=== PATIENT | female | born 1985 | race Caucasian/White ===

== ENCOUNTER 2017-06-06 10:56 | Emergency (ER) | payer MEDICAID ==
[~2017-06-06] VITALS: Ht 157.5 cm; Wt 90.9 kg
[~2017-06-06 10:56] MED LIST: CLIN-79 PO; HYDR-569 PO; IBUP-1986 PO; ROPI0.5T PO
[2017-06-06] MEDS ORDERED: CLIN150C2 PO (12:18)
[2017-06-06] MEDS ORDERED: HYDR-3965 PO (12:18)
[2017-06-06] MEDS ORDERED: clindamycin 150mg capsule PO ONE (12:20)
[2017-06-06] MEDS ORDERED: ondansetron 4mg rapidly disintigrating tab PO ONE (12:20)
[2017-06-06] MEDS ORDERED: HYDROcodone/acetaminophen 5mg/325mg tablet PO ONE (12:20)
[2017-06-06 13:07] VITALS: BP 137/96
[2017-06-06] MEDS ORDERED: AMOX-580 PO (22:51)
== END 2017-06-06 13:08 | disposition home or self-care (01) ==
LOC: ER 10:58
DX: K08.89 Other specified disorders of teeth and supporting structures (principal); G89.29 Other chronic pain; J45.909 Unspecified asthma, uncomplicated; Z90.49 Acquired absence of other specified parts of digestive tract; Z88.5 Allergy status to narcotic agent; Z59.0 Homelessness; Z56.0 Unemployment, unspecified; Z88.1 Allergy status to other antibiotic agents
CPT/HCPCS: 99284

== ENCOUNTER 2017-06-06 21:13 | Emergency (ER) | payer MEDICAID ==
[~2017-06-06] VITALS: Ht 157.5 cm; Wt 97.0 kg
[~2017-06-06 21:13] MED LIST changes: +CLIN150C2 PO; +HYDR-3965 PO
[2017-06-06] MEDS ORDERED: TETanus/Pertussis (Acell)/Diphther VAC/PF (Tdap-Adult) 0.5ml syringe IM ONE (22:00)
[2017-06-06] MEDS ORDERED: BUPIVAcaine 0.5% inj/PF 30 ml vial IJ ONE ×2 (22:00→22:25)
[2017-06-06] MEDS ORDERED: BUPIVAcaine/PF 2.5 mg/ml (0.25%) 30ml vial IJ ONE ×2 (22:10→22:25)
[2017-06-06] MEDS ORDERED: amox tr/potassium clavulanate 875/125mg TAB PO ONE (22:35)
[2017-06-06 22:49] VITALS: BP 132/77
[2017-06-06] MEDS ORDERED: AMOX-580 PO (22:51)
== END 2017-06-06 22:57 | disposition home or self-care (01) ==
LOC: ER 21:14
DX: K08.89 Other specified disorders of teeth and supporting structures (principal); J45.909 Unspecified asthma, uncomplicated; G89.29 Other chronic pain; Z98.890 Other specified postprocedural states; Z88.5 Allergy status to narcotic agent; Z88.1 Allergy status to other antibiotic agents; Z59.0 Homelessness; Z56.0 Unemployment, unspecified; Z90.49 Acquired absence of other specified parts of digestive tract; Z86.14 Personal history of Methicillin resistant Staphylococcus aureus infection
CPT/HCPCS: 41800; 90715; 99283; A6449; J3490

== ENCOUNTER 2017-11-11 01:03 | Emergency (ER) | payer MEDICAID ==
[~2017-11-11] VITALS: Ht 157.5 cm; Wt 7.0 kg
[2017-11-11 01:03] VITALS: BP 124/60
[~2017-11-11 01:03] MED LIST changes: -CLIN-79 PO; -CLIN150C2 PO; +CLIN150C8 PO; -HYDR-3965 PO
[2017-11-11] MEDS ORDERED: PROPARACAINE/FLUORESCEIN ophthalmic drops 5ml bottle RIGHTEYE ONE (01:25)
[2017-11-11] MEDS ORDERED: dexamethasone 4mg/ml inj IM ONE (01:25)
[2017-11-11] MEDS ORDERED: diphenhydrAMINE 25mg capsule PO ONE (01:25)
[2017-11-11] MEDS ORDERED: ERYT1OIN6 RIGHTEYE (02:19)
[2017-11-11] MEDS ORDERED: ibuprofen tablet 400 MG TABLET PO ONE (02:20)
[2017-11-11] MEDS ORDERED: erythromycin ophthalmic ointment 1gm tube RIGHTEYE ONE (02:20)
[2017-11-11] MEDS ORDERED: acetaminophen 325mg tablet PO ONE (02:20)
== END 2017-11-11 02:35 | disposition home or self-care (01) ==
LOC: ER 01:03
DX: T15.91XA Foreign body on external eye, part unspecified, right eye, initial encounter (principal); J45.909 Unspecified asthma, uncomplicated; G89.29 Other chronic pain; Z90.49 Acquired absence of other specified parts of digestive tract; Z98.890 Other specified postprocedural states; Z56.0 Unemployment, unspecified; Z88.5 Allergy status to narcotic agent; Z88.1 Allergy status to other antibiotic agents; Z79.899 Other long term (current) drug therapy; W45.8XXA Other foreign body or object entering through skin, initial encounter; Y93.89 Activity, other specified; Y92.89 Other specified places as the place of occurrence of the external cause; Y99.8 Other external cause status
CPT/HCPCS: 65222; 96372; 99284; J1100; Q0163; 65205

== ENCOUNTER 2017-11-28 12:51 | Emergency (ER) | payer MEDICAID ==
[~2017-11-28] VITALS: Ht 160 cm; Wt 95.5 kg
[~2017-11-28 12:51] MED LIST changes: +ERYT1OIN6 RIGHTEYE
[2017-11-28 13:01] VITALS: BP 120/89
[2017-11-28] MEDS ORDERED: HYDR28CR14 TOP (13:14)
[2017-11-28] MEDS ORDERED: SULF1TAB49 PO (13:14)
== END 2017-11-28 13:52 | disposition home or self-care (01) ==
LOC: ER 12:52
DX: L73.9 Follicular disorder, unspecified (principal); L23.7 Allergic contact dermatitis due to plants, except food; J45.909 Unspecified asthma, uncomplicated; G89.29 Other chronic pain; Z90.49 Acquired absence of other specified parts of digestive tract; Z98.890 Other specified postprocedural states; Z56.0 Unemployment, unspecified; Z90.721 Acquired absence of ovaries, unilateral; Z88.5 Allergy status to narcotic agent; Z88.1 Allergy status to other antibiotic agents; Z79.01 Long term (current) use of anticoagulants; Z79.899 Other long term (current) drug therapy
CPT/HCPCS: 99283

== ENCOUNTER 2018-04-04 15:13 | Emergency (ER) | payer MEDICAID ==
[~2018-04-04] VITALS: Ht 157.5 cm; Wt 205.0 kg
[~2018-04-04 15:13] MED LIST changes: -ERYT1OIN6 RIGHTEYE; +HYDR-4383 PO; -HYDR-569 PO; +HYDR28CR14 TOP; +NAPR-56 PO
[2018-04-04 15:15] VITALS: BP 129/75
[2018-04-04] MEDS ORDERED: ketorolac trometh inj. 60 MG/2 ML VIAL IM STA (16:03)
== END 2018-04-04 16:25 | disposition home or self-care (01) ==
LOC: ER 15:13
DX: M25.511 Pain in right shoulder (principal); J45.909 Unspecified asthma, uncomplicated; G89.29 Other chronic pain; Z86.14 Personal history of Methicillin resistant Staphylococcus aureus infection; Z90.49 Acquired absence of other specified parts of digestive tract; Z98.890 Other specified postprocedural states; Z56.0 Unemployment, unspecified; Z88.5 Allergy status to narcotic agent; Z88.1 Allergy status to other antibiotic agents; Z79.2 Long term (current) use of antibiotics; Z79.899 Other long term (current) drug therapy
CPT/HCPCS: 96372; 99284; J1885

== ENCOUNTER 2018-04-25 12:57 | Emergency (ER) | payer MEDICAID ==
[~2018-04-25] VITALS: Ht 157.5 cm; Wt 101.0 kg
[~2018-04-25 12:57] MED LIST changes: -NAPR-56 PO
[2018-04-25 13:15] VITALS: BP 121/74
[2018-04-25] MEDS ORDERED: TRAM50TA2 PO (13:48)
[2018-04-25] MEDS ORDERED: PENI500T2 PO (13:48)
[2018-04-25] MEDS ORDERED: ketorolac trometh inj. 60 MG/2 ML VIAL IM ONE (13:50)
[2018-04-25] MEDS ORDERED: traMADol 50MG tablet PO ONE (13:50)
== END 2018-04-25 14:29 | disposition home or self-care (01) ==
LOC: ER 12:57
DX: K02.9 Dental caries, unspecified (principal); K08.89 Other specified disorders of teeth and supporting structures; F32.9 Major depressive disorder, single episode, unspecified; G89.29 Other chronic pain; J45.909 Unspecified asthma, uncomplicated; Z90.49 Acquired absence of other specified parts of digestive tract; Z90.721 Acquired absence of ovaries, unilateral; Z56.0 Unemployment, unspecified; Z86.14 Personal history of Methicillin resistant Staphylococcus aureus infection; Z88.5 Allergy status to narcotic agent; Z88.1 Allergy status to other antibiotic agents
CPT/HCPCS: 96372; 99283; J1885

== ENCOUNTER 2018-05-26 11:39 | Emergency (ER) | payer MEDICAID ==
[~2018-05-26] VITALS: Ht 154.9 cm; Wt 99.0 kg
[2018-05-26 12:15] VITALS: BP 110/74
[2018-05-26] MEDS ORDERED: NAPR-56 PO (13:49)
[2018-05-26] MEDS ORDERED: PENI250T2 PO (13:49)
== END 2018-05-26 13:58 | disposition home or self-care (01) ==
LOC: ER 11:40
DX: K08.89 Other specified disorders of teeth and supporting structures (principal); G89.29 Other chronic pain; F32.9 Major depressive disorder, single episode, unspecified; J45.909 Unspecified asthma, uncomplicated; Z86.14 Personal history of Methicillin resistant Staphylococcus aureus infection; Z90.49 Acquired absence of other specified parts of digestive tract; Z56.0 Unemployment, unspecified; Z90.721 Acquired absence of ovaries, unilateral; Z88.1 Allergy status to other antibiotic agents; Z88.5 Allergy status to narcotic agent
CPT/HCPCS: 99283

== ENCOUNTER 2018-07-07 16:27 | Emergency (ER) | payer MEDICAID ==
[~2018-07-07] VITALS: Ht 160 cm; Wt 100.1 kg
[2018-07-07 16:46] VITALS: BP_SYST 154
[2018-07-07] MEDS ORDERED: PENI500T2 PO (17:59)
[2018-07-07] MEDS ORDERED: HYDR-3564 PO (17:59)
== END 2018-07-07 18:19 | disposition home or self-care (01) ==
LOC: ER 16:28
DX: J06.9 Acute upper respiratory infection, unspecified (principal); K04.7 Periapical abscess without sinus; J45.909 Unspecified asthma, uncomplicated; G89.29 Other chronic pain; Z90.49 Acquired absence of other specified parts of digestive tract; Z88.5 Allergy status to narcotic agent; Z88.1 Allergy status to other antibiotic agents; Z79.899 Other long term (current) drug therapy; Z56.0 Unemployment, unspecified
CPT/HCPCS: 99283

== ENCOUNTER 2018-09-22 10:01 | Emergency (ER) | payer MEDICAID ==
[~2018-09-22] VITALS: Ht 157.5 cm; Wt 110.0 kg
[2018-09-22 10:21] VITALS: BP 113/49
[2018-09-22] MEDS ORDERED: ketorolac trometh inj. 60 MG/2 ML VIAL IM ONE (11:55)
[2018-09-22] MEDS ORDERED: HYDROcodone/acetaminophen 10/325mg tab PO ONE (14:25)
[2018-09-26] MEDS ORDERED: HYDR-4353 PO (11:46)
== END 2018-09-22 14:55 | disposition home or self-care (01) ==
LOC: ER 10:02
DX: S32.491A Other specified fracture of right acetabulum, initial encounter for closed fracture (principal); J45.909 Unspecified asthma, uncomplicated; G89.29 Other chronic pain; Z86.14 Personal history of Methicillin resistant Staphylococcus aureus infection; Z04.9 Encounter for examination and observation for unspecified reason; Z90.49 Acquired absence of other specified parts of digestive tract; Z98.890 Other specified postprocedural states; Z56.0 Unemployment, unspecified; Z59.0 Homelessness; Z88.5 Allergy status to narcotic agent; Z88.1 Allergy status to other antibiotic agents; Z79.899 Other long term (current) drug therapy; Y04.2XXA Assault by strike against or bumped into by another person, initial encounter; Y93.89 Activity, other specified; Y92.89 Other specified places as the place of occurrence of the external cause; Y99.8 Other external cause status
CPT/HCPCS: 72192; 73502; 96372; 99285; J1885

== ENCOUNTER 2018-12-22 12:18 | Emergency (ER) | payer MEDICAID ==
[~2018-12-22] VITALS: Ht 160 cm; Wt 95.9 kg
[2018-12-22 12:28] VITALS: BP 121/55
--- NOTE | 2018-12-22 12:52 | NUR ---
HARVINDER YA AT BEDSIDE TO EVELIO FABIAN
[2018-12-22] MEDS ORDERED: traMADol 50MG tablet PO ONE (13:00)
[2018-12-22] MEDS ORDERED: TRAM50TA2 PO (13:05)
--- NOTE | 2018-12-22 13:10 | NUR ---
ATTEMPTED TO PLACE BOOT ON PATIENT, PT REFUSED AT THIS TIME STATING THAT SHE NEEDS SOMETHING FOR HER PAIN FIRST.
--- NOTE | 2018-12-22 13:41 | NUR ---
PT WAS WALKING OUT ATTEMPTING TO LWOB WAS TALKED INTO COMING BACK
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
--- NOTE | 2018-12-22 14:12 | NUR ---
PT STATED BOOT WAS "TOO HEAVY" AND SHE'LL "PROBABLY TAKE IT OFF WHEN I GET HOME"
== END 2018-12-22 14:16 | disposition home or self-care (01) ==
LOC: ER 12:19
DX: S91.105A Unspecified open wound of left lesser toe(s) without damage to nail, initial encounter (principal); J45.909 Unspecified asthma, uncomplicated; G89.29 Other chronic pain; F32.9 Major depressive disorder, single episode, unspecified; F17.200 Nicotine dependence, unspecified, uncomplicated; Z86.14 Personal history of Methicillin resistant Staphylococcus aureus infection; Z90.49 Acquired absence of other specified parts of digestive tract; Z98.890 Other specified postprocedural states; Z56.0 Unemployment, unspecified; Z59.0 Homelessness; Z90.721 Acquired absence of ovaries, unilateral; Z88.5 Allergy status to narcotic agent; Z88.1 Allergy status to other antibiotic agents; Z79.899 Other long term (current) drug therapy; W22.8XXA Striking against or struck by other objects, initial encounter; Y93.89 Activity, other specified; Y92.89 Other specified places as the place of occurrence of the external cause; Y99.8 Other external cause status
CPT/HCPCS: 99283

== ENCOUNTER 2019-02-23 13:40 | Emergency (ER) | payer MEDICAID ==
[~2019-02-23] VITALS: Ht 160 cm; Wt 95.5 kg
[2019-02-23 13:57] VITALS: BP 108/66
[2019-02-23] MEDS ORDERED: CLIN-96 PO (14:33)
[2019-02-23] MEDS ORDERED: TRAM50TA2 PO (14:33)
== END 2019-02-23 14:53 | disposition home or self-care (01) ==
LOC: ER 13:41
DX: K04.7 Periapical abscess without sinus (principal); J45.909 Unspecified asthma, uncomplicated; G89.29 Other chronic pain; F32.9 Major depressive disorder, single episode, unspecified; Z86.14 Personal history of Methicillin resistant Staphylococcus aureus infection; Z90.49 Acquired absence of other specified parts of digestive tract; Z98.890 Other specified postprocedural states; Z90.721 Acquired absence of ovaries, unilateral; Z56.0 Unemployment, unspecified; Z59.0 Homelessness; Z88.5 Allergy status to narcotic agent; Z88.1 Allergy status to other antibiotic agents; Z79.899 Other long term (current) drug therapy
CPT/HCPCS: 99283

== ENCOUNTER 2019-03-18 18:54 | Emergency (ER) | payer MEDICAID ==
[~2019-03-18] VITALS: Ht 160 cm; Wt 90.9 kg
[~2019-03-18 18:54] MED LIST changes: +CLIN-96 PO; +TRAM50TA2 PO
[2019-03-18] MEDS ORDERED: PENI500T2 PO (19:12)
[2019-03-18] MEDS ORDERED: TRAM50TA2 PO (19:12)
[2019-03-18 19:20] VITALS: BP 114/73
== END 2019-03-18 19:25 | disposition home or self-care (01) ==
LOC: ER 18:55
DX: K02.9 Dental caries, unspecified (principal); J45.909 Unspecified asthma, uncomplicated; G89.29 Other chronic pain; F32.9 Major depressive disorder, single episode, unspecified; Z90.49 Acquired absence of other specified parts of digestive tract; Z98.890 Other specified postprocedural states; Z56.0 Unemployment, unspecified; Z59.0 Homelessness; Z86.14 Personal history of Methicillin resistant Staphylococcus aureus infection; Z88.5 Allergy status to narcotic agent; Z88.1 Allergy status to other antibiotic agents; Z79.2 Long term (current) use of antibiotics; Z79.899 Other long term (current) drug therapy
CPT/HCPCS: 99283

== ENCOUNTER 2019-04-12 11:28 | Emergency (ER) | payer MEDICAID ==
[~2019-04-12] VITALS: Ht 160 cm; Wt 86.4 kg
[~2019-04-12 11:28] MED LIST changes: +CLIN-90 PO; -CLIN-96 PO; -TRAM50TA2 PO
[2019-04-12 11:44] VITALS: BP 133/83
[2019-04-12] MEDS ORDERED: ALBU8HFA PO (13:06)
[2019-04-12] MEDS ORDERED: DOXY100C43 PO (13:06)
== END 2019-04-12 13:14 | disposition home or self-care (01) ==
LOC: ER 11:28
DX: J32.0 Chronic maxillary sinusitis (principal); J32.1 Chronic frontal sinusitis; J45.909 Unspecified asthma, uncomplicated; G89.29 Other chronic pain; R05 Cough; F32.9 Major depressive disorder, single episode, unspecified; Z88.6 Allergy status to analgesic agent; Z88.1 Allergy status to other antibiotic agents; Z88.0 Allergy status to penicillin; Z79.2 Long term (current) use of antibiotics; Z79.1 Long term (current) use of non-steroidal anti-inflammatories (NSAID); Z86.14 Personal history of Methicillin resistant Staphylococcus aureus infection; Z90.49 Acquired absence of other specified parts of digestive tract; Z98.890 Other specified postprocedural states; Z59.0 Homelessness; Z56.0 Unemployment, unspecified; Z90.721 Acquired absence of ovaries, unilateral
CPT/HCPCS: 99283

== ENCOUNTER 2019-07-12 17:58 | Emergency (ER) | payer MEDICAID ==
[~2019-07-12] VITALS: Ht 160 cm; Wt 104.8 kg
[2019-07-12 18:06] VITALS: BP 124/62
[2019-07-12] MEDS ORDERED: LORazepam 1 MG tablet PO ONE (19:15)
[2019-07-12] MEDS ORDERED: ARIP10TA15 PO (19:31)
== END 2019-07-12 19:37 | disposition home or self-care (01) ==
LOC: ER 18:00
DX: F41.9 Anxiety disorder, unspecified (principal); F31.9 Bipolar disorder, unspecified; R11.10 Vomiting, unspecified; J45.909 Unspecified asthma, uncomplicated; G89.29 Other chronic pain; Z90.49 Acquired absence of other specified parts of digestive tract; Z98.890 Other specified postprocedural states; Z59.0 Homelessness; Z56.0 Unemployment, unspecified
CPT/HCPCS: 99283

== ENCOUNTER 2019-07-18 14:16 | Emergency (ER) | payer MEDICAID ==
[~2019-07-18] VITALS: Ht 160 cm; Wt 105.0 kg
[~2019-07-18 14:16] MED LIST changes: +ARIP10TA15 PO
[2019-07-18 14:36] VITALS: BP 142/76
[2019-07-18] MEDS ORDERED: AMOX-422 PO (15:28)
== END 2019-07-18 15:40 | disposition home or self-care (01) ==
LOC: ER 14:17
DX: K04.7 Periapical abscess without sinus (principal); J45.909 Unspecified asthma, uncomplicated; G89.29 Other chronic pain; Z59.0 Homelessness; Z56.0 Unemployment, unspecified; Z98.890 Other specified postprocedural states; Z90.49 Acquired absence of other specified parts of digestive tract; Z86.14 Personal history of Methicillin resistant Staphylococcus aureus infection; Z88.5 Allergy status to narcotic agent; Z88.1 Allergy status to other antibiotic agents; Z88.0 Allergy status to penicillin; Z79.899 Other long term (current) drug therapy
CPT/HCPCS: 99283

== ENCOUNTER 2019-07-21 18:05 | Emergency (ER) | payer MEDICAID ==
[~2019-07-21] VITALS: Ht 160 cm; Wt 95.0 kg
[~2019-07-21 18:05] MED LIST changes: +AMOX-422 PO
[2019-07-21 18:20] VITALS: BP 124/77
[2019-07-21] MEDS ORDERED: HYDR-3965 PO (20:33)
[2019-07-21] MEDS ORDERED: aspirin 325mg tablet PO ONE (20:35)
[2019-07-21] MEDS ORDERED: HYDROcodone/acetaminophen 5mg/325mg tablet PO ONE (20:35)
[2019-07-21] MEDS ORDERED: ondansetron 4mg rapidly disintigrating tab PO ONE (20:35)
== END 2019-07-21 20:53 | disposition home or self-care (01) ==
LOC: ER 18:05
DX: K08.89 Other specified disorders of teeth and supporting structures (principal); J45.909 Unspecified asthma, uncomplicated; G89.29 Other chronic pain; F41.9 Anxiety disorder, unspecified; F31.9 Bipolar disorder, unspecified; Z86.14 Personal history of Methicillin resistant Staphylococcus aureus infection; Z90.49 Acquired absence of other specified parts of digestive tract; Z98.890 Other specified postprocedural states; Z90.721 Acquired absence of ovaries, unilateral; Z59.0 Homelessness; Z56.0 Unemployment, unspecified; Z88.5 Allergy status to narcotic agent; Z88.1 Allergy status to other antibiotic agents; Z79.899 Other long term (current) drug therapy
CPT/HCPCS: 99284

== ENCOUNTER 2019-10-01 14:46 | Emergency (ER) | payer MEDICAID ==
[~2019-10-01] VITALS: Ht 160 cm; Wt 102.0 kg
[~2019-10-01 14:46] MED LIST changes: -AMOX-422 PO; -CLIN-90 PO; +CLIN-97 PO
[2019-10-01 14:49] VITALS: BP 104/59
[2019-10-01] MEDS ORDERED: DOXY100C76 PO (16:34)
== END 2019-10-01 16:45 | disposition home or self-care (01) ==
LOC: ER 14:46
DX: L03.211 Cellulitis of face (principal); R51 Headache; R59.9 Enlarged lymph nodes, unspecified; J45.909 Unspecified asthma, uncomplicated; G89.29 Other chronic pain; F41.9 Anxiety disorder, unspecified; F31.9 Bipolar disorder, unspecified; Z86.14 Personal history of Methicillin resistant Staphylococcus aureus infection; Z90.49 Acquired absence of other specified parts of digestive tract; Z98.890 Other specified postprocedural states; Z56.0 Unemployment, unspecified; Z59.0 Homelessness; Z88.1 Allergy status to other antibiotic agents; Z88.5 Allergy status to narcotic agent; Z79.2 Long term (current) use of antibiotics; Z79.899 Other long term (current) drug therapy
CPT/HCPCS: 99283

== ENCOUNTER 2019-10-08 08:55 | Emergency (ER) | payer MEDICAID ==
[~2019-10-08] VITALS: Ht 160 cm; Wt 90.9 kg
[~2019-10-08 08:55] MED LIST changes: +DOXY100C76 PO
[2019-10-08 09:29] LABS: BASOPHILS # (AUTO) 0.1 X10'3 (0-0.2); BASOPHILS % (AUTO) 0.8 % (0-1); EOSINOPHILS # (AUTO) 0.7 X10'3 (0-0.9); EOSINOPHILS % (AUTO) 4.5 % (0-6); HEMATOCRIT 42.3 % (35.0-45.0); HEMOGLOBIN 13.9 g/dl (12.0-16.0); LYMPHOCYTES # (AUTO) 2.5 X10'3 (1.1-4.8); LYMPHOCYTES % (AUTO) 17.2 % (21-51); MEAN CORPUSCULAR HEMOGLOBIN 28.9 PG (27.0-31.0); MEAN CORPUSCULAR HGB CONC 32.9 g/dL (33.0-36.5); MEAN CORPUSCULAR VOLUME 87.8 FL (78-98); MEAN PLATELET VOLUME 8.9 FL (7.4-10.4); MONOCYTES # (AUTO) 1.3 X10'3 (0-0.9); MONOCYTES % (AUTO) 8.9 % (2-12); NEUTROPHILS # (AUTO) 10.1 X10'3 (1.8-7.7); NEUTROPHILS % (AUTO) 68.6 % (42-75); PLATELET COUNT 237 X10'3 (140-440); RED BLOOD COUNT 4.82 X10'6 (4.20-5.60); RED CELL DISTRIBUTION WIDTH 13.7 % (11.5-14.5); WHITE BLOOD COUNT 14.7 X10'3 (4.5-11.0)
[2019-10-08 09:47] LABS: ALANINE AMINOTRANSFERASE 26 U/L (12-78); ALBUMIN 3.5 G/DL (3.4-5.0); ALBUMIN/GLOBULIN RATIO 0.9 (1.1-1.5); ALKALINE PHOSPHATASE 101 IU/L (46-116); ANION GAP 5 (8-16); ASPARTATE AMINO TRANSFERASE 14 U/L (10-37); BILIRUBIN,TOTAL 0.2 MG/DL (0.1-1.0); BLOOD UREA NITROGEN 10 MG/DL (7-18); BUN/CREATININE RATIO 11.9 (6.6-38.0); CHLORIDE 105 MMOL/L (99-107); CREATININE 0.84 MG/DL (0.40-0.90); GLUCOSE 80 MG/DL (70-104); LIPASE 153 U/L (73-393); POTASSIUM 4.1 MMOL/L (3.5-5.1); SODIUM 140 MMOL/L (135-145); TOTAL PROTEIN 7.3 G/DL (6.4-8.2); eGFR 78 ML/MIN
[2019-10-08] MEDS ORDERED: CefTRIAXone 250MG IM Kit w/LIDOcaine IM ONE (10:20)
[2019-10-08] MEDS ORDERED: azithromycin 250mg tablet PO ONE (10:20)
[2019-10-08 10:34] VITALS: BP 107/77
--- NOTE | 2019-10-08 10:39 | NUR ---
Medications not scanned as scanner is not working.
[2019-10-08 11:28] LABS: URINE HCG NEGATIVE (NEG)
[2019-10-08 11:30] LABS: CLARITY,URINE SLIGHTLY CLOUDY (Clear); COLOR,URINE STRAW (Yellow); GLUCOSE, URINE NEGATIVE (Neg); KETONES,URINE NEGATIVE (Neg); LEUKOCYTE ESTERASE ,URINE SMALL (Neg); NITRITES, URINE NEGATIVE (Neg); OCCULT BLOOD,URINE TRACE-INTACT (Neg); PROTEIN,URINE NEGATIVE (Neg); UA COLLECTION TYPE NON-SPECIFIED; UROBILINOGEN,URINE 0.2 E.U/dL (0.2-1.0)
[2019-10-08 11:36] LABS: BACTERIA,URINE 2+ /HPF (Neg); SQUAMOUS EPITHELIAL CELL,UR FEW /LPF (FEW)
== END 2019-10-08 12:04 | disposition home or self-care (01) ==
LOC: ER 08:56
DX: N39.0 Urinary tract infection, site not specified (principal); A64 Unspecified sexually transmitted disease; M79.89 Other specified soft tissue disorders; N89.8 Other specified noninflammatory disorders of vagina; J45.909 Unspecified asthma, uncomplicated; G89.29 Other chronic pain; F31.9 Bipolar disorder, unspecified; F41.9 Anxiety disorder, unspecified; F17.210 Nicotine dependence, cigarettes, uncomplicated; Z90.49 Acquired absence of other specified parts of digestive tract; Z98.890 Other specified postprocedural states; Z86.14 Personal history of Methicillin resistant Staphylococcus aureus infection; Z90.721 Acquired absence of ovaries, unilateral; Z59.0 Homelessness; Z56.0 Unemployment, unspecified; Z88.5 Allergy status to narcotic agent; Z88.1 Allergy status to other antibiotic agents; Z79.899 Other long term (current) drug therapy
CPT/HCPCS: 36415; 80053; 81001; 81025; 83690; 85025; 87088; 87491; 87591; 96372; 99283; J0696; 87077; 87186

== ENCOUNTER 2019-10-15 16:25 | Emergency (ER) | payer MEDICAID ==
[~2019-10-15] VITALS: Ht 160 cm; Wt 100.0 kg
[~2019-10-15 16:25] MED LIST changes: -DOXY100C76 PO
[2019-10-15 16:56] VITALS: BP 145/94
[2019-10-15 17:44] LABS: CLARITY,URINE SLIGHTLY CLOUDY (Clear); COLOR,URINE STRAW (Yellow); GLUCOSE, URINE NEGATIVE (Neg); KETONES,URINE NEGATIVE (Neg); LEUKOCYTE ESTERASE ,URINE LARGE (Neg); NITRITES, URINE NEGATIVE (Neg); OCCULT BLOOD,URINE TRACE-INTACT (Neg); PROTEIN,URINE NEGATIVE (Neg); UROBILINOGEN,URINE 0.2 E.U/dL (0.2-1.0)
[2019-10-15 17:45] LABS: URINE HCG NEGATIVE (NEG)
[2019-10-15 17:59] LABS: UA COLLECTION TYPE CLN CATCH MIDSTREAM
[2019-10-15 18:03] LABS: BACTERIA,URINE 1+ /HPF (Neg); RBC,URINE 0-2 /HPF (0-2); SQUAMOUS EPITHELIAL CELL,UR MODERATE /LPF (FEW)
[2019-10-15] MEDS ORDERED: LACT1CAP65 PO (18:55)
[2019-10-15] MEDS ORDERED: METR-159 PO (18:55)
[2019-10-15] MEDS ORDERED: FLUC150T66 PO (18:55)
== END 2019-10-15 19:09 | disposition home or self-care (01) ==
LOC: ER 16:25
DX: N76.0 Acute vaginitis (principal); B96.89 Other specified bacterial agents as the cause of diseases classified elsewhere; J45.909 Unspecified asthma, uncomplicated; G89.29 Other chronic pain; F31.9 Bipolar disorder, unspecified; F41.9 Anxiety disorder, unspecified; Z86.14 Personal history of Methicillin resistant Staphylococcus aureus infection; Z90.49 Acquired absence of other specified parts of digestive tract; Z98.890 Other specified postprocedural states; Z90.721 Acquired absence of ovaries, unilateral; Z59.0 Homelessness; Z56.0 Unemployment, unspecified; Z88.5 Allergy status to narcotic agent; Z88.1 Allergy status to other antibiotic agents; Z79.899 Other long term (current) drug therapy
CPT/HCPCS: 81001; 81025; 87088; 87210; 99283; Q0112

== ENCOUNTER 2020-01-02 10:57 | Emergency (ER) | payer MEDICAID ==
[~2020-01-02] VITALS: Ht 157.5 cm; Wt 106.4 kg
[~2020-01-02 10:57] MED LIST changes: +LACT1CAP65 PO
[2020-01-02] MEDS ORDERED: OLANZapine 2.5MG tablet PO SCH (11:20)
[2020-01-02] MEDS ORDERED: OLANZAPINE 5 MG TABLET PO SCH ×2 (11:24→12:00)
[2020-01-02 11:36] LABS: BASOPHILS % (AUTO) 0.3 % (0-1); EOSINOPHILS # (AUTO) 0.4 X10'3 (0-0.9); EOSINOPHILS % (AUTO) 3.2 % (0-6); HEMATOCRIT 40.9 % (35.0-45.0); HEMOGLOBIN 13.8 g/dl (12.0-16.0); LYMPHOCYTES # (AUTO) 2.1 X10'3 (1.1-4.8); LYMPHOCYTES % (AUTO) 17.3 % (21-51); MEAN CORPUSCULAR HEMOGLOBIN 29.4 PG (27.0-31.0); MEAN CORPUSCULAR HGB CONC 33.7 g/dL (33.0-36.5); MEAN CORPUSCULAR VOLUME 87.1 FL (78-98); MEAN PLATELET VOLUME 9.3 FL (7.4-10.4); MONOCYTES # (AUTO) 0.7 X10'3 (0-0.9); MONOCYTES % (AUTO) 5.7 % (2-12); NEUTROPHILS # (AUTO) 8.8 X10'3 (1.8-7.7); NEUTROPHILS % (AUTO) 73.5 % (42-75); PLATELET COUNT 204 X10'3 (140-440); RED BLOOD COUNT 4.69 X10'6 (4.20-5.60); RED CELL DISTRIBUTION WIDTH 13.5 % (11.5-14.5)
[2020-01-02] MEDS: LORazepam 1 MG tablet PO PRN ×2 (11:39→18:49)
[2020-01-02 11:44] LABS: ALANINE AMINOTRANSFERASE 28 U/L (12-78); ALBUMIN 3.4 G/DL (3.4-5.0); ALBUMIN/GLOBULIN RATIO 0.9 (1.1-1.5); ALKALINE PHOSPHATASE 86 IU/L (46-116); ANION GAP 11 (8-16); ASPARTATE AMINO TRANSFERASE 15 U/L (10-37); BILIRUBIN,TOTAL 0.2 MG/DL (0.1-1.0); BLOOD UREA NITROGEN 7 MG/DL (7-18); CALCIUM 8.5 MG/DL (8.5-10.1); CHLORIDE 104 MMOL/L (99-107); CREATININE 0.87 MG/DL (0.40-0.90); GLUCOSE 111 MG/DL (70-104); SODIUM 139 MMOL/L (135-145); TOTAL CARBON DIOXIDE 23.8 MMOL/L (24-32); TOTAL PROTEIN 7.1 G/DL (6.4-8.2); eGFR 75 ML/MIN
--- NOTE | 2020-01-02 11:55 | NUR ---
Clarified Zyprexa order with horacio Padilla; give now.
[2020-01-02 12:00] LABS: ETHANOL < 0.010 GM/DL (0.0-0.010)
[2020-01-02 12:00] LABS: CLARITY,URINE SLIGHTLY CLOUDY (Clear); COLOR,URINE YELLOW (Yellow); GLUCOSE, URINE NEGATIVE (Neg); KETONES,URINE NEGATIVE (Neg); LEUKOCYTE ESTERASE ,URINE TRACE (Neg); NITRITES, URINE NEGATIVE (Neg); OCCULT BLOOD,URINE SMALL (Neg); PROTEIN,URINE NEGATIVE (Neg); UA COLLECTION TYPE CLN CATCH MIDSTREAM; URINE HCG NEGATIVE (NEG); UROBILINOGEN,URINE 0.2 E.U/dL (0.2-1.0)
[2020-01-02] MEDS ORDERED: OLANZAPINE 5 MG TABLET PO ONE (12:00)
[2020-01-02 12:07] LABS: URINE AMPHETAMINE SCREEN NEGATIVE (Neg); URINE BARBITUATE SCREEN NEGATIVE (Neg); URINE BENZODIAZEPINES SCREEN NEGATIVE (Neg); URINE CANNABINOID SCREEN NEGATIVE (Neg); URINE COCAINE SCREEN NEGATIVE (Neg); URINE METHADONE SCREEN NEGATIVE (Neg); URINE OPIATE SCREEN NEGATIVE (Neg); URINE PHENCYCLIDINE SCREEN NEGATIVE (Neg)
[2020-01-02 12:10] LABS: MUCUS STRANDS MODERATE /LPF (Neg); SQUAMOUS EPITHELIAL CELL,UR MANY /LPF (FEW)
[2020-01-02 12:11] LABS: BACTERIA,URINE 2+ /HPF (Neg); RBC,URINE 0-2 /HPF (0-2); WBC,URINE 0-4 /HPF (0-4)
--- NOTE | 2020-01-02 13:05 | NUR ---
pt resting in bed quietly in bed ,no distress noted ,will cont to monitor.
--- NOTE | 2020-01-02 14:02 | NUR ---
Assumed care. PT ambulated to room with tech. Ate lunch at bedside and then laid down to sleep
--- NOTE | 2020-01-02 14:07 | NUR ---
PACKET FAXED TO [facility]
--- NOTE | 2020-01-02 14:24 | NUR ---
RN trying to complete MedRec, pt denies taking any daily meds. States she lives in a house. Admits SI, denies HI or AV/H
[2020-01-02] MEDS ORDERED: NO HOME MEDS (14:54)
--- NOTE | 2020-01-02 16:16 | NUR ---
Pt states takes no home meds except requip for resltless leg syndrome. She cannot remember if she uses [facility] or [facility]. Called both pharmacies and neither one has requip on this pts profile. I relayed this information to the pt and she stated "I don't know".
--- NOTE | 2020-01-02 17:08 | NUR ---
Pt up ambulates to bathroom steady gait.
--- NOTE | 2020-01-02 18:50 | NUR ---
Patient tells this television writer that she feels like her legs are about to come off, she describes anxiety. Ativan 1mg PO given. Patient is medication compliant at this time.
--- NOTE | 2020-01-02 18:51 | NUR ---
Lion from [facility] called requesting a copy of patients HCG. A copy of patients negative HCG report was faxed.
--- NOTE | 2020-01-02 19:03 | NUR ---
[facility] called. Lion the intake nurse advised that UA is not remarkable for treatment. They will be accepting this patient, perhaps later this evening.
--- NOTE | 2020-01-02 19:30 | NUR ---
[facility] in [place] will be accepting this patient to the care of Dr. Rowan. [facility] transport will pick this patient up around 2130 hours this evening.
--- NOTE | 2020-01-02 21:49 | NUR ---
Pt has been resting comfortably in bed. She is currently using the restroom. She denies pain or discomfort.
[2020-01-02 22:02] VITALS: BP 121/61
== END 2020-01-02 22:07 ==
LOC: ER 10:57
DX: R45.851 Suicidal ideations (principal); J45.909 Unspecified asthma, uncomplicated; G89.29 Other chronic pain; F41.9 Anxiety disorder, unspecified; F31.9 Bipolar disorder, unspecified; Z86.14 Personal history of Methicillin resistant Staphylococcus aureus infection; Z90.49 Acquired absence of other specified parts of digestive tract; Z98.890 Other specified postprocedural states; Z59.0 Homelessness; Z56.0 Unemployment, unspecified; Z88.5 Allergy status to narcotic agent; Z79.899 Other long term (current) drug therapy
CPT/HCPCS: 36415; 80053; 80305; 80320; 81001; 81025; 84443; 85025; 99285

== ENCOUNTER 2020-01-08 20:58 | Emergency (ER) | payer MEDICAID ==
[~2020-01-08] VITALS: Ht 157.5 cm; Wt 95.5 kg
[~2020-01-08 20:58] MED LIST changes: -ARIP10TA15 PO; -CLIN-97 PO; -CLIN150C8 PO; -HYDR-4383 PO; -HYDR28CR14 TOP; -IBUP-1986 PO; -LACT1CAP65 PO; +NO HOME MEDS; -ROPI0.5T PO
[2020-01-08] MEDS ORDERED: ketorolac tromethamine 15mg/ml inj. IM ONE (22:30)
[2020-01-08] MEDS ORDERED: IBUP-1984 PO (23:00)
--- NOTE | 2020-01-08 23:16 | NUR ---
manny YA in room to reevaluate.
[2020-01-08] MEDS ORDERED: IBUP-1985 PO (23:17)
[2020-01-08 23:28] VITALS: BP 111/74
== END 2020-01-08 23:40 | disposition home or self-care (01) ==
LOC: ER 20:59
DX: M79.672 Pain in left foot (principal); G89.29 Other chronic pain; J45.909 Unspecified asthma, uncomplicated; F41.9 Anxiety disorder, unspecified; F31.9 Bipolar disorder, unspecified; F17.200 Nicotine dependence, unspecified, uncomplicated; Z86.14 Personal history of Methicillin resistant Staphylococcus aureus infection; Z90.49 Acquired absence of other specified parts of digestive tract; Z98.890 Other specified postprocedural states; Z56.0 Unemployment, unspecified; Z59.0 Homelessness; Z88.5 Allergy status to narcotic agent; Z88.1 Allergy status to other antibiotic agents; Z79.899 Other long term (current) drug therapy
CPT/HCPCS: 73630; 96372; 99283; J1885

== ENCOUNTER 2020-02-07 11:13 | Emergency (ER) | payer MEDICAID ==
[~2020-02-07] VITALS: Ht 157.5 cm; Wt 109.0 kg
[~2020-02-07 11:13] MED LIST changes: +IBUP-1985 PO
[2020-02-07 12:06] LABS: BASOPHILS # (AUTO) 0.1 X10'3 (0-0.2); BASOPHILS % (AUTO) 0.4 % (0-1); EOSINOPHILS # (AUTO) 0.3 X10'3 (0-0.9); EOSINOPHILS % (AUTO) 1.7 % (0-6); HEMATOCRIT 41.6 % (35.0-45.0); HEMOGLOBIN 14.1 g/dl (12.0-16.0); LYMPHOCYTES # (AUTO) 2.2 X10'3 (1.1-4.8); LYMPHOCYTES % (AUTO) 12.9 % (21-51); MEAN CORPUSCULAR HEMOGLOBIN 29.2 PG (27.0-31.0); MEAN CORPUSCULAR HGB CONC 33.8 g/dL (33.0-36.5); MEAN CORPUSCULAR VOLUME 86.3 FL (78-98); MEAN PLATELET VOLUME 8.8 FL (7.4-10.4); MONOCYTES # (AUTO) 1.4 X10'3 (0-0.9); MONOCYTES % (AUTO) 8.6 % (2-12); NEUTROPHILS # (AUTO) 12.7 X10'3 (1.8-7.7); NEUTROPHILS % (AUTO) 76.4 % (42-75); PLATELET COUNT 199 X10'3 (140-440); RED BLOOD COUNT 4.82 X10'6 (4.20-5.60); RED CELL DISTRIBUTION WIDTH 13.7 % (11.5-14.5); WHITE BLOOD COUNT 16.7 X10'3 (4.5-11.0)
[2020-02-07 12:26] LABS: ALANINE AMINOTRANSFERASE 27 U/L (12-78); ALBUMIN 3.6 G/DL (3.4-5.0); ALBUMIN/GLOBULIN RATIO 0.9 (1.1-1.5); ALKALINE PHOSPHATASE 94 IU/L (46-116); ANION GAP 8 (8-16); ASPARTATE AMINO TRANSFERASE 18 U/L (10-37); BILIRUBIN,TOTAL 0.4 MG/DL (0.1-1.0); BLOOD UREA NITROGEN 11 MG/DL (7-18); BUN/CREATININE RATIO 11.5 (6.6-38.0); CALCIUM 9.1 MG/DL (8.5-10.1); CHLORIDE 101 MMOL/L (99-107); CREATININE 0.96 MG/DL (0.40-0.90); GLUCOSE 93 MG/DL (70-104); POTASSIUM 3.5 MMOL/L (3.5-5.1); SODIUM 137 MMOL/L (135-145); TOTAL CARBON DIOXIDE 28.5 MMOL/L (24-32); TOTAL PROTEIN 7.5 G/DL (6.4-8.2); eGFR 67 ML/MIN
[2020-02-07 12:27] LABS: CLARITY,URINE SLIGHTLY CLOUDY (Clear); COLOR,URINE STRAW (Yellow); GLUCOSE, URINE NEGATIVE (Neg); KETONES,URINE NEGATIVE (Neg); LEUKOCYTE ESTERASE ,URINE LARGE (Neg); NITRITES, URINE NEGATIVE (Neg); OCCULT BLOOD,URINE SMALL (Neg); PH,URINE 6.5 (4.8-8.0); PROTEIN,URINE NEGATIVE (Neg); UA COLLECTION TYPE CLN CATCH MIDSTREAM; UROBILINOGEN,URINE 0.2 E.U/dL (0.2-1.0)
[2020-02-07 12:34] LABS: BACTERIA,URINE 1+ /HPF (Neg); MUCUS STRANDS NONE SEEN /LPF (Neg); RBC,URINE 0-2 /HPF (0-2); SQUAMOUS EPITHELIAL CELL,UR MODERATE /LPF (FEW)
[2020-02-07 12:40] LABS: URINE AMPHETAMINE SCREEN POSITIVE (Neg); URINE BARBITUATE SCREEN NEGATIVE (Neg); URINE BENZODIAZEPINES SCREEN NEGATIVE (Neg); URINE CANNABINOID SCREEN NEGATIVE (Neg); URINE COCAINE SCREEN NEGATIVE (Neg); URINE METHADONE SCREEN NEGATIVE (Neg); URINE OPIATE SCREEN NEGATIVE (Neg); URINE PHENCYCLIDINE SCREEN NEGATIVE (Neg)
[2020-02-07] MEDS ORDERED: SULF1TAB49 PO (13:35)
[2020-02-07] MEDS ORDERED: FURO-150 PO (13:35)
[2020-02-07] MEDS ORDERED: POTA-84 PO (13:35)
[2020-02-07 13:42] VITALS: BP 125/72
== END 2020-02-07 13:44 | disposition home or self-care (01) ==
LOC: ER 11:13
DX: R60.9 Edema, unspecified (principal); D72.829 Elevated white blood cell count, unspecified; I25.2 Old myocardial infarction; J45.909 Unspecified asthma, uncomplicated; G89.29 Other chronic pain; Z86.14 Personal history of Methicillin resistant Staphylococcus aureus infection; F41.9 Anxiety disorder, unspecified; F31.9 Bipolar disorder, unspecified; F17.200 Nicotine dependence, unspecified, uncomplicated; F12.90 Cannabis use, unspecified, uncomplicated; Z90.49 Acquired absence of other specified parts of digestive tract; Z98.890 Other specified postprocedural states; Z59.0 Homelessness; Z56.0 Unemployment, unspecified; Z88.5 Allergy status to narcotic agent; Z88.1 Allergy status to other antibiotic agents; Z79.2 Long term (current) use of antibiotics; Z79.899 Other long term (current) drug therapy
CPT/HCPCS: 36415; 71045; 80053; 80305; 81001; 83880; 84484; 85025; 87088; 93005; 99285

== ENCOUNTER 2020-04-15 12:47 | Emergency (ER) | payer MEDICAID ==
[~2020-04-15] VITALS: Ht 157.5 cm; Wt 109.9 kg
[~2020-04-15 12:47] MED LIST changes: +POTA-84 PO
--- NOTE | 2020-04-15 15:31 | NUR ---
plant technical specialist at bedside.
[2020-04-15] MEDS ORDERED: TRIA15CR61 TOP (16:10)
[2020-04-15 16:26] VITALS: BP 133/68
== END 2020-04-15 16:28 | disposition home or self-care (01) ==
LOC: ER 12:47
DX: N92.1 Excessive and frequent menstruation with irregular cycle (principal); L29.3 Anogenital pruritus, unspecified; J45.909 Unspecified asthma, uncomplicated; G89.29 Other chronic pain; M54.9 Dorsalgia, unspecified; F41.9 Anxiety disorder, unspecified; F32.9 Major depressive disorder, single episode, unspecified; I21.9 Acute myocardial infarction, unspecified; F12.10 Cannabis abuse, uncomplicated; Z59.0 Homelessness; Z56.0 Unemployment, unspecified; Z98.890 Other specified postprocedural states; Z90.49 Acquired absence of other specified parts of digestive tract; Z88.5 Allergy status to narcotic agent; Z88.1 Allergy status to other antibiotic agents; Z79.899 Other long term (current) drug therapy; Z79.1 Long term (current) use of non-steroidal anti-inflammatories (NSAID)
CPT/HCPCS: 76856; 99284

== ENCOUNTER 2020-04-22 16:57 | Emergency (ER) | payer MEDICAID ==
[~2020-04-22] VITALS: Ht 157.5 cm; Wt 87.0 kg
[~2020-04-22 16:57] MED LIST changes: +TRIA15CR61 TOP
[2020-04-22] MEDS ORDERED: normal saline 1000ML IV soln IVB ONE (17:30)
[2020-04-22] MEDS ORDERED: ondansetron/PF 4mg/2ml inj IV ONE (17:30)
--- NOTE | 2020-04-22 18:12 | NUR ---
Pt given commode with a urine hat and knows that we need a urine sample.
[2020-04-22] MEDS ORDERED: acetaminophen 325mg tablet PO ONE (18:15)
[2020-04-22 18:27] LABS: BASOPHILS % (AUTO) 0.3 % (0-1); EOSINOPHILS # (AUTO) 0.3 X10'3 (0-0.9); EOSINOPHILS % (AUTO) 2.9 % (0-6); HEMOGLOBIN 13.7 g/dl (12.0-16.0); LYMPHOCYTES # (AUTO) 2.4 X10'3 (1.1-4.8); LYMPHOCYTES % (AUTO) 21.6 % (21-51); MEAN CORPUSCULAR HEMOGLOBIN 29.2 PG (27.0-31.0); MEAN CORPUSCULAR HGB CONC 33.3 g/dL (33.0-36.5); MEAN CORPUSCULAR VOLUME 87.5 FL (78-98); MEAN PLATELET VOLUME 9.4 FL (7.4-10.4); MONOCYTES % (AUTO) 9.1 % (2-12); NEUTROPHILS # (AUTO) 7.2 X10'3 (1.8-7.7); NEUTROPHILS % (AUTO) 66.1 % (42-75); PLATELET COUNT 211 X10'3 (140-440); RED BLOOD COUNT 4.69 X10'6 (4.20-5.60); RED CELL DISTRIBUTION WIDTH 14.6 % (11.5-14.5); WHITE BLOOD COUNT 10.9 X10'3 (4.5-11.0)
[2020-04-22 18:40] LABS: ALANINE AMINOTRANSFERASE 45 U/L (12-78); ALBUMIN 3.3 G/DL (3.4-5.0); ANION GAP 7 (8-16); ASPARTATE AMINO TRANSFERASE 25 U/L (10-37); BILIRUBIN,TOTAL 0.3 MG/DL (0.1-1.0); BLOOD UREA NITROGEN 4 MG/DL (7-18); BUN/CREATININE RATIO 4.8 (6.6-38.0); CALCIUM 8.7 MG/DL (8.5-10.1); CHLORIDE 106 MMOL/L (99-107); CREATININE 0.83 MG/DL (0.40-0.90); GLUCOSE 105 MG/DL (70-104); POTASSIUM 3.6 MMOL/L (3.5-5.1); SODIUM 141 MMOL/L (135-145); TOTAL CARBON DIOXIDE 27.9 MMOL/L (24-32); TOTAL PROTEIN 6.6 G/DL (6.4-8.2); eGFR 78 ML/MIN
[2020-04-22 18:41] LABS: ALKALINE PHOSPHATASE 84 IU/L (46-116); LIPASE 74 U/L (73-393)
[2020-04-22 19:51] VITALS: BP 125/80
== END 2020-04-22 19:54 | disposition home or self-care (01) ==
LOC: ER 16:58
DX: J02.9 Acute pharyngitis, unspecified (principal); R51.9 Headache, unspecified; R11.10 Vomiting, unspecified; Z20.828 Contact with and (suspected) exposure to other viral communicable diseases; I25.2 Old myocardial infarction; J45.909 Unspecified asthma, uncomplicated; G89.29 Other chronic pain; F41.9 Anxiety disorder, unspecified; F31.9 Bipolar disorder, unspecified; F12.90 Cannabis use, unspecified, uncomplicated; Z86.14 Personal history of Methicillin resistant Staphylococcus aureus infection; Z90.49 Acquired absence of other specified parts of digestive tract; Z98.890 Other specified postprocedural states; Z72.89 Other problems related to lifestyle; Z56.0 Unemployment, unspecified; Z59.0 Homelessness; Z88.5 Allergy status to narcotic agent; Z88.1 Allergy status to other antibiotic agents; Z79.899 Other long term (current) drug therapy
CPT/HCPCS: 36415; 71045; 80053; 83690; 85025; 93005; 96361; 96374; 99285; J2405; J7030

== ENCOUNTER 2020-06-04 13:26 | Emergency (ER) | payer MEDICAID ==
[~2020-06-04] VITALS: Ht 160 cm; Wt 102.0 kg
[~2020-06-04 13:26] MED LIST changes: -TRIA15CR61 TOP
[2020-06-04 14:28] VITALS: BP 121/83
[2020-06-04] MEDS ORDERED: TETanus/Pertussis (Acell)/Diphther VAC/PF (Tdap-Adult) 0.5ml syringe IMVAC ONE (15:15)
[2020-06-04] MEDS ORDERED: bacitracin 15gm ointment TP ONE (15:15)
[2020-06-04] MEDS ORDERED: OLAN5TAB3 PO (17:43)
[2020-06-04] MEDS ORDERED: DIVA500T9 PO (17:43)
== END 2020-06-04 18:01 | disposition home or self-care (01) ==
LOC: ER 13:27
DX: S50.811A Abrasion of right forearm, initial encounter (principal); S50.812A Abrasion of left forearm, initial encounter; F31.9 Bipolar disorder, unspecified; J44.9 Chronic obstructive pulmonary disease, unspecified; G89.29 Other chronic pain; Z86.14 Personal history of Methicillin resistant Staphylococcus aureus infection; Z90.49 Acquired absence of other specified parts of digestive tract; Z98.891 History of uterine scar from previous surgery; Z90.721 Acquired absence of ovaries, unilateral; Z72.89 Other problems related to lifestyle; Z56.0 Unemployment, unspecified; Z59.0 Homelessness; Z88.2 Allergy status to sulfonamides; Z88.8 Allergy status to other drugs, medicaments and biological substances; Z79.899 Other long term (current) drug therapy; X58.XXXA Exposure to other specified factors, initial encounter; Y93.89 Activity, other specified; Y92.89 Other specified places as the place of occurrence of the external cause; Y99.8 Other external cause status
CPT/HCPCS: 99283

== ENCOUNTER 2020-07-01 11:26 | Emergency (ER) | payer MEDICAID ==
[~2020-07-01] VITALS: Ht 157.5 cm; Wt 90.0 kg
[~2020-07-01 11:26] MED LIST changes: +DIVA500T9 PO; +OLAN5TAB3 PO
[2020-07-01 11:54] VITALS: BP 131/73
[2020-07-01] MEDS ORDERED: ketorolac tromethamine 15mg/ml inj. IM ONE (14:35)
[2020-07-01] MEDS ORDERED: orphenadrine citrate 60mg/2ml inj. IM ONE (14:35)
[2020-07-01] MEDS ORDERED: METH-360 PO (14:36)
[2020-07-01] MEDS ORDERED: NAPR-56 PO (14:36)
== END 2020-07-01 15:22 | disposition home or self-care (01) ==
LOC: ER 11:27
DX: M43.6 Torticollis (principal); M54.2 Cervicalgia; I25.10 Atherosclerotic heart disease of native coronary artery without angina pectoris; J45.909 Unspecified asthma, uncomplicated; G89.29 Other chronic pain; F41.9 Anxiety disorder, unspecified; F31.9 Bipolar disorder, unspecified; F12.90 Cannabis use, unspecified, uncomplicated; Z86.14 Personal history of Methicillin resistant Staphylococcus aureus infection; Z90.49 Acquired absence of other specified parts of digestive tract; Z98.890 Other specified postprocedural states; Z72.89 Other problems related to lifestyle; Z59.0 Homelessness; Z56.0 Unemployment, unspecified; Z88.5 Allergy status to narcotic agent; Z88.1 Allergy status to other antibiotic agents; Z79.899 Other long term (current) drug therapy
CPT/HCPCS: 96372; 99284; J1885; J2360

== ENCOUNTER 2020-09-11 18:16 | Emergency (ER) | payer MEDICAID ==
[~2020-09-11] VITALS: Ht 157.5 cm; Wt 109.0 kg
[~2020-09-11 18:16] MED LIST changes: -DIVA500T9 PO; +METH-360 PO
[2020-09-11 19:49] LABS: BASOPHILS # (AUTO) 0.1 X10'3 (0-0.2); BASOPHILS % (AUTO) 0.5 % (0-1); EOSINOPHILS # (AUTO) 0.5 X10'3 (0-0.9); EOSINOPHILS % (AUTO) 3.9 % (0-6); HEMATOCRIT 41.3 % (35.0-45.0); HEMOGLOBIN 13.6 g/dl (12.0-16.0); LYMPHOCYTES # (AUTO) 2.7 X10'3 (1.1-4.8); LYMPHOCYTES % (AUTO) 19.5 % (21-51); MEAN CORPUSCULAR HEMOGLOBIN 28.9 PG (27.0-31.0); MEAN CORPUSCULAR VOLUME 87.6 FL (78-98); MEAN PLATELET VOLUME 9.3 FL (7.4-10.4); MONOCYTES # (AUTO) 1.1 X10'3 (0-0.9); MONOCYTES % (AUTO) 8.2 % (2-12); NEUTROPHILS # (AUTO) 9.2 X10'3 (1.8-7.7); NEUTROPHILS % (AUTO) 67.9 % (42-75); PLATELET COUNT 210 X10'3 (140-440); RED BLOOD COUNT 4.71 X10'6 (4.20-5.60); RED CELL DISTRIBUTION WIDTH 13.9 % (11.5-14.5); WHITE BLOOD COUNT 13.6 X10'3 (4.5-11.0)
[2020-09-11 20:39] LABS: ALANINE AMINOTRANSFERASE 27 U/L (12-78); ALBUMIN 3.2 G/DL (3.4-5.0); ALBUMIN/GLOBULIN RATIO 0.9 (1.1-1.5); ALKALINE PHOSPHATASE 93 IU/L (46-116); ANION GAP 9 (8-16); ASPARTATE AMINO TRANSFERASE 20 U/L (10-37); BILIRUBIN,TOTAL 0.3 MG/DL (0.1-1.0); BLOOD UREA NITROGEN 7 MG/DL (7-18); BUN/CREATININE RATIO 9.2 (6.6-38.0); CALCIUM 8.9 MG/DL (8.5-10.1); CHLORIDE 105 MMOL/L (99-107); CREATININE 0.76 MG/DL (0.40-0.90); GLUCOSE 102 MG/DL (70-104); POTASSIUM 3.7 MMOL/L (3.5-5.1); SODIUM 141 MMOL/L (135-145); TOTAL CARBON DIOXIDE 26.9 MMOL/L (24-32); TOTAL PROTEIN 6.8 G/DL (6.4-8.2); eGFR 87 ML/MIN
--- NOTE | 2020-09-11 20:44 | NUR ---
PT STATES SHE HAS BEEN TAKING DIUREX AT HOME BECAUSE SHE FEELS SHE HAS EXTRA UNNEEDED FLUID. PT ALSO STATES HER MOUTH TASTES LIKE SALT.
[2020-09-11 21:04] VITALS: BP 113/63
== END 2020-09-11 21:05 | disposition home or self-care (01) ==
LOC: ER 18:17
DX: Z02.89 Encounter for other administrative examinations (principal); R06.02 Shortness of breath; I25.2 Old myocardial infarction; J45.909 Unspecified asthma, uncomplicated; G89.29 Other chronic pain; F41.9 Anxiety disorder, unspecified; F31.9 Bipolar disorder, unspecified; F12.90 Cannabis use, unspecified, uncomplicated; Z86.14 Personal history of Methicillin resistant Staphylococcus aureus infection; Z90.49 Acquired absence of other specified parts of digestive tract; Z98.51 Tubal ligation status; Z98.890 Other specified postprocedural states; Z72.89 Other problems related to lifestyle; Z59.0 Homelessness; Z56.0 Unemployment, unspecified; Z88.5 Allergy status to narcotic agent; Z88.1 Allergy status to other antibiotic agents; Z79.899 Other long term (current) drug therapy
CPT/HCPCS: 36415; 71045; 80053; 83880; 85025; 93005; 99285

== ENCOUNTER 2020-09-27 15:47 | Emergency (ER) | payer MEDICAID ==
[~2020-09-27] VITALS: Ht 157.5 cm; Wt 88.6 kg
[2020-09-27 16:13] VITALS: BP 130/70
[2020-09-27] MEDS ORDERED: HYDROcodone/acetaminophen 5mg/325mg tablet PO ONE (17:55)
[2020-09-27] MEDS ORDERED: ondansetron 4mg rapidly disintigrating tab PO ONE (17:55)
[2020-09-27] MEDS ORDERED: TRAM50TA2 PO (17:59)
== END 2020-09-27 18:58 | disposition home or self-care (01) ==
LOC: ER 15:47
DX: M79.601 Pain in right arm (principal); I25.2 Old myocardial infarction; J45.909 Unspecified asthma, uncomplicated; G89.29 Other chronic pain; F41.9 Anxiety disorder, unspecified; F31.9 Bipolar disorder, unspecified; F12.90 Cannabis use, unspecified, uncomplicated; Z90.49 Acquired absence of other specified parts of digestive tract; Z98.51 Tubal ligation status; Z98.890 Other specified postprocedural states; Z86.14 Personal history of Methicillin resistant Staphylococcus aureus infection; Z59.0 Homelessness; Z56.0 Unemployment, unspecified; Z72.89 Other problems related to lifestyle; Z88.5 Allergy status to narcotic agent; Z88.1 Allergy status to other antibiotic agents; Z79.899 Other long term (current) drug therapy
CPT/HCPCS: 29105; 73090; 99283

== ENCOUNTER 2020-10-05 14:51 | Emergency (ER) | payer MEDICAID ==
[~2020-10-05] VITALS: Ht 157.5 cm; Wt 86.4 kg
[2020-10-05] MEDS ORDERED: sulfamethoxazole/trimethoprim DS (800/160mg) tablet PO ONE (15:40)
[2020-10-05] MEDS ORDERED: SULF1TAB45 PO (15:43)
== END 2020-10-05 16:17 | disposition home or self-care (01) ==
LOC: ER 14:53
DX: S42.401A Unspecified fracture of lower end of right humerus, initial encounter for closed fracture (principal); S50.812A Abrasion of left forearm, initial encounter; S50.811A Abrasion of right forearm, initial encounter; L08.89 Other specified local infections of the skin and subcutaneous tissue; I25.2 Old myocardial infarction; J45.909 Unspecified asthma, uncomplicated; G89.29 Other chronic pain; F41.9 Anxiety disorder, unspecified; F31.9 Bipolar disorder, unspecified; F12.90 Cannabis use, unspecified, uncomplicated; Z86.14 Personal history of Methicillin resistant Staphylococcus aureus infection; Z90.49 Acquired absence of other specified parts of digestive tract; Z98.51 Tubal ligation status; Z98.890 Other specified postprocedural states; Z72.89 Other problems related to lifestyle; Z59.0 Homelessness; Z56.0 Unemployment, unspecified; Z88.5 Allergy status to narcotic agent; Z88.1 Allergy status to other antibiotic agents; Z79.899 Other long term (current) drug therapy; X58.XXXA Exposure to other specified factors, initial encounter; Y93.89 Activity, other specified; Y92.89 Other specified places as the place of occurrence of the external cause; Y99.8 Other external cause status
CPT/HCPCS: 99283

== ENCOUNTER 2020-10-16 09:45 | Emergency (ER) | payer MEDICAID ==
[~2020-10-16] VITALS: Ht 157.5 cm; Wt 102.0 kg
[~2020-10-16 09:45] MED LIST changes: +SULF1TAB45 PO
[2020-10-16] MEDS ORDERED: fluconazole 150mg tablet PO ONE (11:40)
[2020-10-16] MEDS ORDERED: METR-159 PO (11:45)
[2020-10-16] MEDS ORDERED: metroNIDAZOLE 500mg tablet PO ONE (12:10)
[2020-10-16 13:00] LABS: CLARITY,URINE SLIGHTLY CLOUDY (Clear); COLOR,URINE STRAW (Yellow); GLUCOSE, URINE NEGATIVE (Neg); KETONES,URINE NEGATIVE (Neg); LEUKOCYTE ESTERASE ,URINE MODERATE (Neg); NITRITES, URINE NEGATIVE (Neg); OCCULT BLOOD,URINE TRACE-INTACT (Neg); PROTEIN,URINE NEGATIVE (Neg); UROBILINOGEN,URINE 0.2 E.U/dL (0.2-1.0)
[2020-10-16 13:01] LABS: URINE HCG NEGATIVE (NEG)
[2020-10-16 13:02] LABS: UA COLLECTION TYPE CLN CATCH MIDSTREAM
[2020-10-16 13:06] LABS: BACTERIA,URINE 1+ /HPF (Neg); MUCUS STRANDS NONE SEEN /LPF (Neg); RBC,URINE 0-2 /HPF (0-2); SQUAMOUS EPITHELIAL CELL,UR MODERATE /LPF (FEW); TRANSITIONAL EPI CELLS,URINE FEW /HPF; TRICHOMONAS,URINE FEW /HPF (NEGATIVE); WBC CLUMPS,URINE FEW /HPF (NEGATIVE)
[2020-10-16 13:26] VITALS: BP 105/59
== END 2020-10-16 13:33 | disposition home or self-care (01) ==
LOC: ER 09:45
DX: A59.01 Trichomonal vulvovaginitis (principal); Z88.5 Allergy status to narcotic agent; Z88.1 Allergy status to other antibiotic agents; Z79.899 Other long term (current) drug therapy
CPT/HCPCS: 36415; 81001; 81025; 87088; 87210; 87491; 87591; 99284; Q0112; J3490

== ENCOUNTER 2020-10-20 18:51 | Emergency (ER) | payer MEDICAID ==
[~2020-10-20] VITALS: Ht 160 cm; Wt 100.0 kg
[~2020-10-20 18:51] MED LIST changes: +METR-159 PO; -SULF1TAB45 PO
[2020-10-20] MEDS ORDERED: olanzapine 10mg tablet PO ONE (19:25)
[2020-10-20 19:34] LABS: BASOPHILS # (AUTO) 0.1 X10'3 (0-0.2); BASOPHILS % (AUTO) 0.4 % (0-1); EOSINOPHILS # (AUTO) 0.2 X10'3 (0-0.9); HEMOGLOBIN 13.5 g/dl (12.0-16.0); LYMPHOCYTES # (AUTO) 2.3 X10'3 (1.1-4.8); LYMPHOCYTES % (AUTO) 14.2 % (21-51); MEAN CORPUSCULAR HEMOGLOBIN 29.2 PG (27.0-31.0); MEAN CORPUSCULAR HGB CONC 33.8 g/dL (33.0-36.5); MEAN CORPUSCULAR VOLUME 86.3 FL (78-98); MEAN PLATELET VOLUME 9.4 FL (7.4-10.4); MONOCYTES # (AUTO) 1.2 X10'3 (0-0.9); MONOCYTES % (AUTO) 7.5 % (2-12); NEUTROPHILS # (AUTO) 12.6 X10'3 (1.8-7.7); NEUTROPHILS % (AUTO) 76.9 % (42-75); PLATELET COUNT 225 X10'3 (140-440); RED BLOOD COUNT 4.64 X10'6 (4.20-5.60); RED CELL DISTRIBUTION WIDTH 13.5 % (11.5-14.5); WHITE BLOOD COUNT 16.4 X10'3 (4.5-11.0)
[2020-10-20 19:45] LABS: ALANINE AMINOTRANSFERASE 29 U/L (12-78); ALBUMIN 3.6 G/DL (3.4-5.0); ALBUMIN/GLOBULIN RATIO 1.1 (1.1-1.5); ALKALINE PHOSPHATASE 91 IU/L (46-116); ANION GAP 11 (8-16); ASPARTATE AMINO TRANSFERASE 20 U/L (10-37); BILIRUBIN,TOTAL 0.5 MG/DL (0.1-1.0); BLOOD UREA NITROGEN 8 MG/DL (7-18); BUN/CREATININE RATIO 9.5 (6.6-38.0); CALCIUM 8.9 MG/DL (8.5-10.1); CHLORIDE 103 MMOL/L (99-107); CREATININE 0.84 MG/DL (0.40-0.90); GLUCOSE 91 MG/DL (70-104); POTASSIUM 3.5 MMOL/L (3.5-5.1); SODIUM 137 MMOL/L (135-145); TOTAL CARBON DIOXIDE 22.9 MMOL/L (24-32); eGFR 77 ML/MIN
[2020-10-20 19:54] LABS: ETHANOL < 0.010 GM/DL (0.0-0.010)
--- NOTE | 2020-10-20 21:56 | NUR ---
PATIENT RESTING COMFORTABLY AT THIS TIME. PATIENT STATES SHE IS STILL NOT ABLE TO PROVIDE URINE SAMPLE.
[2020-10-21 01:21] LABS: CLARITY,URINE CLEAR (Clear); COLOR,URINE YELLOW (Yellow); GLUCOSE, URINE NEGATIVE (Neg); KETONES,URINE TRACE mg/dl (Neg); LEUKOCYTE ESTERASE ,URINE SMALL (Neg); NITRITES, URINE NEGATIVE (Neg); OCCULT BLOOD,URINE TRACE-INTACT (Neg); PROTEIN,URINE NEGATIVE (Neg); URINE HCG NEGATIVE (NEG); UROBILINOGEN,URINE 0.2 E.U/dL (0.2-1.0)
[2020-10-21 01:29] LABS: UA COLLECTION TYPE VOIDED
[2020-10-21 01:49] LABS: BACTERIA,URINE FEW /HPF (Neg); RBC,URINE 0-2 /HPF (0-2); SQUAMOUS EPITHELIAL CELL,UR MODERATE /LPF (FEW); WBC,URINE 0-4 /HPF (0-4)
[2020-10-21 02:20] LABS: URINE AMPHETAMINE SCREEN POSITIVE (Neg); URINE BARBITUATE SCREEN NEGATIVE (Neg); URINE BENZODIAZEPINES SCREEN NEGATIVE (Neg); URINE CANNABINOID SCREEN NEGATIVE (Neg); URINE COCAINE SCREEN NEGATIVE (Neg); URINE METHADONE SCREEN NEGATIVE (Neg); URINE OPIATE SCREEN NEGATIVE (Neg); URINE PHENCYCLIDINE SCREEN NEGATIVE (Neg)
--- NOTE | 2020-10-21 07:42 | NUR ---
packet faxed to [facility]
--- NOTE | 2020-10-21 07:52 | NUR ---
pt sleeping in rgt lateral position,RR WNL,Nonlabored and even.will cont to monitor.room in front of nsg station.
[2020-10-21 09:14] VITALS: BP 106/69
--- NOTE | 2020-10-21 09:20 | NUR ---
pt vitals done and assessment completed at the same time,pt stated that am sleep ,i need to sleep more.will cont to monitor.room in front of nurses station.
--- NOTE | 2020-10-21 10:28 | NUR ---
PT SLEEPING IN BED QUIETLY IN RGT LAT POSITION,RR EVEN AND NONLABORED.
--- NOTE | 2020-10-21 11:34 | NUR ---
Report from Dong MAHMOOD. Pt wheelchaired to bed 26, pt i to bed, warm blanket and water given. pt lying down resting.
--- NOTE | 2020-10-21 14:48 | NUR ---
[facility] attempted several times to evaluate and write a safety plan with pt. Pt uncooperative. Yelling at [facility] worker and saying I just want to be left alone.
--- NOTE | 2020-10-21 15:15 | NUR ---
Pt discharged by [facility] and Dr. Novak. Pt refusing to leave, security called. Pt went into the bathroom. Came out arguing she wasn't going to leve, its not safe out there, she can't find her family. Pt eventually changed her clothes and was escorted out with belongings in stable condition.
== END 2020-10-21 15:21 ==
LOC: ER 18:52
DX: F20.9 Schizophrenia, unspecified (principal); F29 Unspecified psychosis not due to a substance or known physiological condition; J45.909 Unspecified asthma, uncomplicated; G89.29 Other chronic pain; M54.9 Dorsalgia, unspecified; F12.10 Cannabis abuse, uncomplicated; I21.9 Acute myocardial infarction, unspecified; Z59.0 Homelessness; Z88.5 Allergy status to narcotic agent; Z56.0 Unemployment, unspecified; Z88.1 Allergy status to other antibiotic agents; Z79.899 Other long term (current) drug therapy
CPT/HCPCS: 36415; 80053; 80305; 80320; 81001; 81025; 84443; 85025; 99285

== ENCOUNTER 2020-10-26 12:38 | Emergency (ER) | payer MEDICAID ==
[~2020-10-26] VITALS: Ht 160 cm; Wt 99.8 kg
[~2020-10-26 12:38] MED LIST changes: -METR-159 PO
[2020-10-26 12:55] VITALS: BP 103/64
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
[2020-10-26] MEDS ORDERED: IBUP-1984 PO (14:49)
[2020-10-26] MEDS ORDERED: ketorolac tromethamine 15mg/ml inj. IM ONE (14:50)
[2020-10-26] MEDS ORDERED: emollient combination-Eucerin 250 ML LOTION TP SCH (14:55)
[2020-10-26] MEDS ORDERED: mineral oil/petrolatum, white cream 113gm jar TP ONE (15:00)
== END 2020-10-26 15:22 | disposition home or self-care (01) ==
LOC: ER 12:39
DX: M79.673 Pain in unspecified foot (principal); I25.2 Old myocardial infarction; J45.909 Unspecified asthma, uncomplicated; G89.29 Other chronic pain; F41.9 Anxiety disorder, unspecified; F31.9 Bipolar disorder, unspecified; F12.90 Cannabis use, unspecified, uncomplicated; Z86.14 Personal history of Methicillin resistant Staphylococcus aureus infection; Z90.49 Acquired absence of other specified parts of digestive tract; Z98.51 Tubal ligation status; Z98.890 Other specified postprocedural states; Z72.89 Other problems related to lifestyle; Z56.0 Unemployment, unspecified; Z59.0 Homelessness; Z88.5 Allergy status to narcotic agent; Z88.1 Allergy status to other antibiotic agents; Z79.899 Other long term (current) drug therapy
CPT/HCPCS: 96372; 99283; J1885

== ENCOUNTER → 2021-01-22 | Emergency (ER) | payer MEDICAID ==
[~2021-01-22] VITALS: Ht 157.5 cm; Wt 100.7 kg
[~2021-01-22] MED LIST changes: +CIPR-259 PO; +DOXY100C76 PO; +METR-159 PO; +MICO44CM TOP; +ONDA4TAB6 PO
[2021-01-22 12:55] VITALS: BP 125/73
[2021-01-22 14:09] LABS: CLARITY,URINE CLOUDY (Clear); COLOR,URINE YELLOW (Yellow); GLUCOSE, URINE NEGATIVE (Neg); KETONES,URINE NEGATIVE (Neg); LEUKOCYTE ESTERASE ,URINE LARGE (Neg); NITRITES, URINE NEGATIVE (Neg); OCCULT BLOOD,URINE LARGE (Neg); PROTEIN,URINE TRACE mg/dl (Neg); UA COLLECTION TYPE CLN CATCH MIDSTREAM; UROBILINOGEN,URINE 0.2 E.U/dL (0.2-1.0)
[2021-01-22 14:17] LABS: MUCUS STRANDS MODERATE /LPF (Neg); SQUAMOUS EPITHELIAL CELL,UR MANY /LPF (FEW)
[2021-01-22 14:20] LABS: WBC,URINE 30-50 /HPF (0-4)
[2021-01-22 14:21] LABS: TRICHOMONAS,URINE FEW /HPF (NEGATIVE)
[2021-01-22 14:22] LABS: BACTERIA,URINE 1+ /HPF (Neg)
== END | disposition home or self-care (01) ==
LOC: ER 11:08
DX: N39.0 Urinary tract infection, site not specified (principal); I25.2 Old myocardial infarction; J45.909 Unspecified asthma, uncomplicated; G89.29 Other chronic pain; Z87.81 Personal history of (healed) traumatic fracture; Z86.14 Personal history of Methicillin resistant Staphylococcus aureus infection; Z90.49 Acquired absence of other specified parts of digestive tract; Z98.891 History of uterine scar from previous surgery; Z98.51 Tubal ligation status; Z56.0 Unemployment, unspecified; Z59.0 Homelessness; Z72.89 Other problems related to lifestyle; Z88.1 Allergy status to other antibiotic agents; Z88.8 Allergy status to other drugs, medicaments and biological substances; Z79.2 Long term (current) use of antibiotics; Z79.899 Other long term (current) drug therapy
CPT/HCPCS: 81001; 99283

== ENCOUNTER 2021-01-26 17:00 | Emergency (ER) | payer MEDICAID ==
[~2021-01-26] VITALS: Ht 157.5 cm; Wt 100.0 kg
[~2021-01-26 17:00] MED LIST changes: -CIPR-259 PO; -METR-159 PO; -MICO44CM TOP; -ONDA4TAB6 PO
[2021-01-26 17:14] VITALS: BP 125/74
--- NOTE | 2021-01-26 21:19 | NUR ---
PATIENT UNABLE TO GIVEN URINE, STATES WE HAVE ONE FROM PREVIOUS VISIT
[2021-01-26] MEDS ORDERED: METR-159 PO (21:34)
[2021-01-26] MEDS ORDERED: MICO44CM TOP (21:34)
[2021-01-26] MEDS ORDERED: ONDA4TAB6 PO (21:34)
[2021-01-26] MEDS ORDERED: CIPR-259 PO (21:34)
[2021-01-26] MEDS ORDERED: LIDOcaine Viscous 15ml cup MM ONE (21:40)
== END 2021-01-26 21:53 | disposition home or self-care (01) ==
LOC: ER 17:00
DX: N89.8 Other specified noninflammatory disorders of vagina (principal); I25.2 Old myocardial infarction; J45.909 Unspecified asthma, uncomplicated; G89.29 Other chronic pain; F41.9 Anxiety disorder, unspecified; F31.9 Bipolar disorder, unspecified; F12.90 Cannabis use, unspecified, uncomplicated; Z86.14 Personal history of Methicillin resistant Staphylococcus aureus infection; Z90.49 Acquired absence of other specified parts of digestive tract; Z98.51 Tubal ligation status; Z98.890 Other specified postprocedural states; Z72.89 Other problems related to lifestyle; Z56.0 Unemployment, unspecified; Z59.0 Homelessness; Z88.5 Allergy status to narcotic agent; Z88.1 Allergy status to other antibiotic agents; Z79.2 Long term (current) use of antibiotics; Z79.899 Other long term (current) drug therapy
CPT/HCPCS: 99283

== ENCOUNTER 2021-02-02 01:01 | Emergency (ER) | payer MEDICAID ==
[~2021-02-02] VITALS: Ht 160 cm; Wt 84.1 kg
[~2021-02-02 01:01] MED LIST changes: +CIPR-259 PO; -DOXY100C76 PO; +METR-159 PO; +MICO44CM TOP; +ONDA4TAB6 PO
[2021-02-02] MEDS ORDERED: acetaminophen 325mg tablet PO ONE (01:15)
[2021-02-02 01:17] VITALS: BP 116/72
== END 2021-02-02 01:22 | disposition home or self-care (01) ==
LOC: ER 01:02
DX: S39.012A Strain of muscle, fascia and tendon of lower back, initial encounter (principal); M79.605 Pain in left leg; R51.9 Headache, unspecified; E86.0 Dehydration; M79.661 Pain in right lower leg; I25.2 Old myocardial infarction; J45.909 Unspecified asthma, uncomplicated; G89.29 Other chronic pain; F41.9 Anxiety disorder, unspecified; F31.9 Bipolar disorder, unspecified; F12.90 Cannabis use, unspecified, uncomplicated; Z86.14 Personal history of Methicillin resistant Staphylococcus aureus infection; Z90.49 Acquired absence of other specified parts of digestive tract; Z98.51 Tubal ligation status; Z98.890 Other specified postprocedural states; Z72.89 Other problems related to lifestyle; Z56.0 Unemployment, unspecified; Z59.0 Homelessness; Z88.1 Allergy status to other antibiotic agents; Z88.5 Allergy status to narcotic agent; Z79.2 Long term (current) use of antibiotics; Z79.899 Other long term (current) drug therapy; X58.XXXA Exposure to other specified factors, initial encounter; Y93.89 Activity, other specified; Y92.89 Other specified places as the place of occurrence of the external cause; Y99.8 Other external cause status
CPT/HCPCS: 99283

== ENCOUNTER 2021-03-14 01:43 | Emergency (ER) | payer MEDICAID ==
[~2021-03-14] VITALS: Ht 167.6 cm; Wt 86.4 kg
[~2021-03-14 01:43] MED LIST changes: -CIPR-259 PO; -METR-159 PO
[2021-03-14] MEDS ORDERED: ketorolac trometh. 30mg/ml inj. IM ONE (03:30)
[2021-03-14 04:03] VITALS: BP 96/53
== END 2021-03-14 04:05 | disposition home or self-care (01) ==
LOC: ER 01:44
DX: J06.9 Acute upper respiratory infection, unspecified (principal); J02.9 Acute pharyngitis, unspecified; R05.9 Cough, unspecified; R11.0 Nausea; M54.2 Cervicalgia; R51.9 Headache, unspecified; R50.9 Fever, unspecified; I25.10 Atherosclerotic heart disease of native coronary artery without angina pectoris; J45.909 Unspecified asthma, uncomplicated; G89.29 Other chronic pain; F41.9 Anxiety disorder, unspecified; F31.9 Bipolar disorder, unspecified; F12.90 Cannabis use, unspecified, uncomplicated; Z86.14 Personal history of Methicillin resistant Staphylococcus aureus infection; Z90.49 Acquired absence of other specified parts of digestive tract; Z98.890 Other specified postprocedural states; Z98.51 Tubal ligation status; Z72.89 Other problems related to lifestyle; Z56.0 Unemployment, unspecified; Z59.00 Homelessness unspecified; Z88.5 Allergy status to narcotic agent; Z88.1 Allergy status to other antibiotic agents; Z79.2 Long term (current) use of antibiotics; Z79.899 Other long term (current) drug therapy
CPT/HCPCS: 96372; 99284; J1885

== ENCOUNTER 2021-04-24 17:03 | Emergency (ER) | payer MEDICAID | END 2021-04-24 21:32 | disposition left against medical advice (07) | LOC: ER 17:08 | DX: R21 Rash and other nonspecific skin eruption (principal); Z53.21 Procedure and treatment not carried out due to patient leaving prior to being seen by health care provider ==

== ENCOUNTER 2021-07-15 01:52 | Emergency (ER) | payer MEDICAID ==
[~2021-07-15] VITALS: Ht 160 cm; Wt 91.7 kg
[2021-07-15 01:58] VITALS: BP 118/64
[2021-07-15] MEDS ORDERED: sulfamethoxazole/trimethoprim DS (800/160mg) tablet PO STA (02:32)
[2021-07-15] MEDS ORDERED: SULF1TAB49 PO (02:34)
== END 2021-07-15 03:01 | disposition home or self-care (01) ==
LOC: ER 01:53
DX: L03.317 Cellulitis of buttock (principal); J45.909 Unspecified asthma, uncomplicated; F41.9 Anxiety disorder, unspecified; G89.29 Other chronic pain; M54.9 Dorsalgia, unspecified; Z88.5 Allergy status to narcotic agent; Z88.1 Allergy status to other antibiotic agents; Z79.899 Other long term (current) drug therapy
CPT/HCPCS: 99283

== ENCOUNTER 2021-08-02 05:36 | Emergency (ER) | payer MEDICAID ==
[~2021-08-02] VITALS: Ht 170.2 cm; Wt 100.0 kg
[2021-08-02 05:38] VITALS: BP 125/76
[2021-08-02] MEDS ORDERED: naproxen 500mg tablet PO ONE (05:50)
== END 2021-08-02 05:55 | disposition home or self-care (01) ==
LOC: ER 05:37
DX: S00.83XA Contusion of other part of head, initial encounter (principal); I25.2 Old myocardial infarction; J45.909 Unspecified asthma, uncomplicated; G89.29 Other chronic pain; F41.9 Anxiety disorder, unspecified; F31.9 Bipolar disorder, unspecified; F12.90 Cannabis use, unspecified, uncomplicated; F15.90 Other stimulant use, unspecified, uncomplicated; Z86.14 Personal history of Methicillin resistant Staphylococcus aureus infection; Z90.49 Acquired absence of other specified parts of digestive tract; Z98.51 Tubal ligation status; Z98.890 Other specified postprocedural states; Z72.89 Other problems related to lifestyle; Z56.0 Unemployment, unspecified; Z59.00 Homelessness unspecified; Z88.5 Allergy status to narcotic agent; Z88.1 Allergy status to other antibiotic agents; Z79.899 Other long term (current) drug therapy; Y08.89XA Assault by other specified means, initial encounter; Y93.89 Activity, other specified; Y92.89 Other specified places as the place of occurrence of the external cause; Y99.8 Other external cause status
CPT/HCPCS: 99283

== ENCOUNTER 2021-08-19 00:30 | Emergency (ER) | payer MEDICAID ==
[~2021-08-19] VITALS: Ht 160 cm; Wt 86.4 kg
[2021-08-19 00:36] VITALS: BP 124/85
[2021-08-19] MEDS ORDERED: ketorolac tromethamine 15mg/ml inj. IM ONE (02:25)
[2021-08-19] MEDS ORDERED: acetaminophen 325mg tablet PO ONE (04:30)
== END 2021-08-19 04:39 | disposition home or self-care (01) ==
LOC: ER 00:31
DX: G89.29 Other chronic pain (principal); M25.551 Pain in right hip; J45.909 Unspecified asthma, uncomplicated; F31.9 Bipolar disorder, unspecified; Z87.81 Personal history of (healed) traumatic fracture; F12.10 Cannabis abuse, uncomplicated; F15.10 Other stimulant abuse, uncomplicated; Z88.5 Allergy status to narcotic agent; Z88.1 Allergy status to other antibiotic agents; Z79.899 Other long term (current) drug therapy
CPT/HCPCS: 73501; 96372; 99283; J1885

== ENCOUNTER 2021-11-22 19:08 | Emergency (ER) | payer MEDICAID ==
[~2021-11-22] VITALS: Ht 157.5 cm; Wt 77.3 kg
[2021-11-22] MEDS ORDERED: ketorolac trometh. 30mg/ml inj. IV ONE (19:55)
[2021-11-22] MEDS ORDERED: metoclopramide 5 mg/ml inj IV ONE (19:55)
[2021-11-22] MEDS ORDERED: normal saline 1000ml 1,000 ML IV ONE (19:55)
[2021-11-22 22:10] VITALS: BP 90/63
[2021-11-23] MEDS ORDERED: IBUP-1985 PO (20:47)
== END 2021-11-22 21:59 | disposition home or self-care (01) ==
LOC: ER 19:09
DX: T67.9XXA Effect of heat and light, unspecified, initial encounter (principal); Z20.822 Contact with and (suspected) exposure to COVID-19; E86.0 Dehydration; I25.2 Old myocardial infarction; J45.909 Unspecified asthma, uncomplicated; G89.29 Other chronic pain; F12.90 Cannabis use, unspecified, uncomplicated; F15.90 Other stimulant use, unspecified, uncomplicated; Z87.81 Personal history of (healed) traumatic fracture; Z86.14 Personal history of Methicillin resistant Staphylococcus aureus infection; Z90.49 Acquired absence of other specified parts of digestive tract; Z98.891 History of uterine scar from previous surgery; Z98.51 Tubal ligation status; Z56.0 Unemployment, unspecified; Z59.00 Homelessness unspecified; Z88.1 Allergy status to other antibiotic agents; Z88.8 Allergy status to other drugs, medicaments and biological substances; Z79.899 Other long term (current) drug therapy; X58.XXXA Exposure to other specified factors, initial encounter
CPT/HCPCS: 87635; 96361; 96374; 96375; 99284; C9803; J1885; J2765; J7030

== ENCOUNTER 2021-11-23 00:55 | Emergency (ER) | payer MEDICAID ==
[~2021-11-23] VITALS: Ht 157.5 cm; Wt 86.7 kg
[2021-11-23 01:03] VITALS: BP 117/68
[2021-11-23] MEDS ORDERED: IBUP-1985 PO (20:47)
== END 2021-11-23 08:53 | disposition left against medical advice (07) ==
LOC: ER 00:56
DX: N93.9 Abnormal uterine and vaginal bleeding, unspecified (principal); Z53.21 Procedure and treatment not carried out due to patient leaving prior to being seen by health care provider

== ENCOUNTER 2021-11-23 14:26 | Emergency (ER) | payer MEDICAID ==
[~2021-11-23] VITALS: Ht 177.8 cm; Wt 77.3 kg
[2021-11-23] MEDS ORDERED: ketorolac trometh. 30mg/ml inj. IV ONE (19:10)
[2021-11-23] MEDS ORDERED: normal saline 1000ML IV soln IVB ONE (19:10)
[2021-11-23 19:52] LABS: BASOPHILS % (AUTO) 0.2 % (0-1); EOSINOPHILS # (AUTO) 0.2 X10'3 (0-0.9); EOSINOPHILS % (AUTO) 1.6 % (0-6); HEMATOCRIT 37.1 % (35.0-45.0); HEMOGLOBIN 12.6 g/dl (12.0-16.0); LYMPHOCYTES # (AUTO) 2.3 X10'3 (1.1-4.8); LYMPHOCYTES % (AUTO) 21.2 % (21-51); MEAN CORPUSCULAR HEMOGLOBIN 29.7 PG (27.0-31.0); MEAN CORPUSCULAR VOLUME 87.3 FL (78-98); MEAN PLATELET VOLUME 9.1 FL (7.4-10.4); MONOCYTES # (AUTO) 0.8 X10'3 (0-0.9); MONOCYTES % (AUTO) 7.5 % (2-12); NEUTROPHILS # (AUTO) 7.4 X10'3 (1.8-7.7); NEUTROPHILS % (AUTO) 69.5 % (42-75); PLATELET COUNT 188 X10'3 (140-440); RED BLOOD COUNT 4.25 X10'6 (4.20-5.60); RED CELL DISTRIBUTION WIDTH 13.2 % (11.5-14.5); WHITE BLOOD COUNT 10.6 X10'3 (4.5-11.0)
[2021-11-23 19:59] VITALS: BP 112/64
[2021-11-23 20:06] LABS: ALANINE AMINOTRANSFERASE 20 U/L (12-78); ALBUMIN 3.2 G/DL (3.4-5.0); ALKALINE PHOSPHATASE 70 IU/L (46-116); ANION GAP 11 (8-16); ASPARTATE AMINO TRANSFERASE 14 U/L (10-37); BILIRUBIN,TOTAL 0.6 MG/DL (0.1-1.0); BLOOD UREA NITROGEN 6 MG/DL (7-18); BUN/CREATININE RATIO 9.2 (6.6-38.0); CALCIUM 8.3 MG/DL (8.5-10.1); CHLORIDE 108 MMOL/L (99-107); CREATININE 0.65 MG/DL (0.40-0.90); GLUCOSE 75 MG/DL (70-104); POTASSIUM 3.3 MMOL/L (3.5-5.1); SODIUM 142 MMOL/L (135-145); TOTAL CARBON DIOXIDE 23.2 MMOL/L (24-32); TOTAL PROTEIN 6.3 G/DL (6.4-8.2); eGFR > 90 ML/MIN
[2021-11-23] MEDS ORDERED: potassium Cl 20 mEq SR tablet PO ONE (20:35)
[2021-11-23] MEDS ORDERED: IBUP-1985 PO (20:47)
== END 2021-11-23 21:42 | disposition home or self-care (01) ==
LOC: ER 14:28
DX: E86.0 Dehydration (principal); M54.6 Pain in thoracic spine; R51.9 Headache, unspecified; I25.2 Old myocardial infarction; J45.909 Unspecified asthma, uncomplicated; G89.29 Other chronic pain; F41.9 Anxiety disorder, unspecified; F31.9 Bipolar disorder, unspecified; F12.90 Cannabis use, unspecified, uncomplicated; F15.90 Other stimulant use, unspecified, uncomplicated; Z86.14 Personal history of Methicillin resistant Staphylococcus aureus infection; Z90.49 Acquired absence of other specified parts of digestive tract; Z98.51 Tubal ligation status; Z98.890 Other specified postprocedural states; Z72.89 Other problems related to lifestyle; Z56.0 Unemployment, unspecified; Z59.00 Homelessness unspecified; Z88.5 Allergy status to narcotic agent; Z79.2 Long term (current) use of antibiotics; Z88.1 Allergy status to other antibiotic agents; Z79.899 Other long term (current) drug therapy
CPT/HCPCS: 36415; 80053; 85025; 96361; 96374; 99283; J1885; J7030; 99284

== ENCOUNTER 2022-02-12 15:08 | Emergency (ER) | payer MEDICAID ==
[~2022-02-12] VITALS: Ht 157.5 cm; Wt 81.8 kg
[2022-02-12 16:26] VITALS: BP 98/61
[2022-02-12] MEDS ORDERED: SULF1TAB49 PO (17:11)
== END 2022-02-12 17:49 | disposition home or self-care (01) ==
LOC: ER 15:08
DX: L03.011 Cellulitis of right finger (principal); J45.909 Unspecified asthma, uncomplicated; G89.29 Other chronic pain; Z87.81 Personal history of (healed) traumatic fracture; F31.9 Bipolar disorder, unspecified; F12.10 Cannabis abuse, uncomplicated; F15.10 Other stimulant abuse, uncomplicated; Z59.00 Homelessness unspecified; Z56.0 Unemployment, unspecified; Z88.5 Allergy status to narcotic agent; Z88.1 Allergy status to other antibiotic agents; Z79.899 Other long term (current) drug therapy; Z79.1 Long term (current) use of non-steroidal anti-inflammatories (NSAID)
CPT/HCPCS: 99283

== ENCOUNTER 2022-05-10 09:40 | Emergency (ER) | payer MEDICAID ==
[~2022-05-10] VITALS: Ht 160 cm; Wt 77.3 kg
[2022-05-10 09:44] VITALS: BP 108/57
[2022-05-10] MEDS ORDERED: LIDOcaine 1% W/epiNEPHrine 1:100,000 20ml vial SQ ONE (13:05)
[2022-05-10] MEDS ORDERED: LIDOCAINE 1%/EPI 1:100,000 inj. 10 ML multi-dose vial SQ ONE (13:10)
[2022-05-10] MEDS ORDERED: HYDROcodone/acetaminophen 5mg/325mg tablet PO ONE (13:20)
[2022-05-10] MEDS ORDERED: sulfamethoxazole/trimethoprim DS (800/160mg) tablet PO ONE (13:25)
[2022-05-10] MEDS ORDERED: SULF1TAB49 PO (13:29)
== END 2022-05-10 14:55 | disposition home or self-care (01) ==
LOC: ER 09:40
DX: L02.212 Cutaneous abscess of back [any part, except buttock and flank] (principal); M54.6 Pain in thoracic spine; I25.2 Old myocardial infarction; J45.909 Unspecified asthma, uncomplicated; G89.29 Other chronic pain; F41.9 Anxiety disorder, unspecified; F31.9 Bipolar disorder, unspecified; F12.90 Cannabis use, unspecified, uncomplicated; F15.90 Other stimulant use, unspecified, uncomplicated; Z86.14 Personal history of Methicillin resistant Staphylococcus aureus infection; Z90.49 Acquired absence of other specified parts of digestive tract; Z98.51 Tubal ligation status; Z98.890 Other specified postprocedural states; Z72.89 Other problems related to lifestyle; Z56.0 Unemployment, unspecified; Z59.00 Homelessness unspecified
CPT/HCPCS: 72074; 99283; 99285; A6449

== ENCOUNTER 2022-06-10 18:42 | Emergency (ER) | payer MEDICAID ==
[~2022-06-10] VITALS: Ht 160 cm; Wt 70.0 kg
[~2022-06-10 18:42] MED LIST changes: +METR-159 PO
[2022-06-10 19:18] VITALS: BP 112/70
== END 2022-06-10 19:21 | disposition home or self-care (01) ==
LOC: ER 18:43
DX: A59.01 Trichomonal vulvovaginitis (principal); J45.909 Unspecified asthma, uncomplicated; G89.29 Other chronic pain; F31.9 Bipolar disorder, unspecified; F41.9 Anxiety disorder, unspecified; I25.2 Old myocardial infarction; F12.90 Cannabis use, unspecified, uncomplicated; F15.90 Other stimulant use, unspecified, uncomplicated; Z56.0 Unemployment, unspecified; Z59.00 Homelessness unspecified; Z98.890 Other specified postprocedural states; Z90.49 Acquired absence of other specified parts of digestive tract; Z98.51 Tubal ligation status; Z90.721 Acquired absence of ovaries, unilateral; Z88.5 Allergy status to narcotic agent; Z88.1 Allergy status to other antibiotic agents; Z79.899 Other long term (current) drug therapy
CPT/HCPCS: 99281; 99283

== ENCOUNTER 2023-01-27 01:15 | Emergency (ER) | payer SELFPAY ==
[~2023-01-27] VITALS: Ht 157.5 cm; Wt 72.3 kg
[~2023-01-27 01:15] MED LIST changes: -METR-159 PO
[2023-01-27 02:37] VITALS: BP 109/29; PULSE 90; RESP 18; TEMP 99; O2SAT 100
[2023-01-27] MEDS ORDERED: PERM60CR19 TP (03:28)
[2023-01-28] MEDS ORDERED: PERM60CR19 TP (15:53)
== END 2023-01-27 03:39 | disposition home or self-care (01) ==
LOC: ER 01:15
DX: L98.9 Disorder of the skin and subcutaneous tissue, unspecified (principal); J45.909 Unspecified asthma, uncomplicated; G89.29 Other chronic pain; F15.90 Other stimulant use, unspecified, uncomplicated; F12.90 Cannabis use, unspecified, uncomplicated; Z86.14 Personal history of Methicillin resistant Staphylococcus aureus infection; Z88.8 Allergy status to other drugs, medicaments and biological substances; Z88.1 Allergy status to other antibiotic agents; Z79.899 Other long term (current) drug therapy; Z79.2 Long term (current) use of antibiotics; Z56.0 Unemployment, unspecified; Z59.00 Homelessness unspecified; Z72.89 Other problems related to lifestyle
CPT/HCPCS: 99282

== ENCOUNTER 2023-01-28 11:54 | Emergency (ER) | payer MEDICAID ==
[~2023-01-28] VITALS: Ht 160 cm; Wt 75.8 kg
[~2023-01-28 11:54] MED LIST changes: +PERM60CR19 TP
[2023-01-28 11:56] VITALS: BP 131/75; PULSE 107; RESP 16; TEMP 98.5; O2SAT 98
[2023-01-28] MEDS ORDERED: diphenhydrAMINE 50 mg/ml inj IM ONE (15:50)
[2023-01-28] MEDS ORDERED: PERM60CR19 TP (15:53)
== END 2023-01-29 07:35 | disposition home or self-care (01) ==
LOC: ER 11:54
DX: B86 Scabies (principal); J45.909 Unspecified asthma, uncomplicated; G89.29 Other chronic pain; M54.9 Dorsalgia, unspecified; F31.9 Bipolar disorder, unspecified; F20.9 Schizophrenia, unspecified; Z88.5 Allergy status to narcotic agent; Z88.8 Allergy status to other drugs, medicaments and biological substances
CPT/HCPCS: 96372; 99283; J1200

== ENCOUNTER 2023-09-18 18:16 | Emergency (ER) | payer MEDICAID ==
[~2023-09-18] VITALS: Ht 157.5 cm; Wt 90.9 kg
[~2023-09-18 18:16] MED LIST changes: -PERM60CR19 TP
[2023-09-18 18:32] VITALS: BP 118/60; PULSE 77; RESP 18; TEMP 98.2; O2SAT 99
[2023-09-18] MEDS ORDERED: FURO40TA4 PO (20:39)
[2023-09-18] MEDS: furosemide 20MG tablet PO ONE (20:55)
== END 2023-09-18 20:58 | disposition home or self-care (01) ==
LOC: ER 18:17
DX: R60.0 Localized edema (principal); J45.909 Unspecified asthma, uncomplicated; F12.90 Cannabis use, unspecified, uncomplicated; F15.90 Other stimulant use, unspecified, uncomplicated; Z88.5 Allergy status to narcotic agent; Z88.1 Allergy status to other antibiotic agents; Z79.1 Long term (current) use of non-steroidal anti-inflammatories (NSAID); Z79.899 Other long term (current) drug therapy; Z98.890 Other specified postprocedural states
CPT/HCPCS: 99283

== ENCOUNTER 2023-09-22 15:46 | Emergency (ER) | payer MEDICAID ==
[~2023-09-22] VITALS: Ht 157.5 cm; Wt 91.6 kg
[~2023-09-22 15:46] MED LIST changes: +FURO40TA4 PO
[2023-09-22 16:10] VITALS: BP 114/60; PULSE 84; RESP 16; TEMP 97.8; O2SAT 96
[2023-09-22 16:29] LABS: BASOPHILS # (AUTO) 0.1 X10'3 (0-0.2); BASOPHILS % (AUTO) 0.6 % (0-1); EOSINOPHILS # (AUTO) 0.7 X10'3 (0-0.9); EOSINOPHILS % (AUTO) 6.1 % (0-6); HEMATOCRIT 37.6 % (35.0-45.0); HEMOGLOBIN 12.6 g/dl (12.0-16.0); LYMPHOCYTES # (AUTO) 2.6 X10'3 (1.1-4.8); LYMPHOCYTES % (AUTO) 21.8 % (21-51); MEAN CORPUSCULAR HEMOGLOBIN 31.4 PG (27.0-31.0); MEAN CORPUSCULAR HGB CONC 33.6 g/dL (33.0-36.5); MEAN CORPUSCULAR VOLUME 93.4 FL (78-98); MONOCYTES # (AUTO) 1.1 X10'3 (0-0.9); NEUTROPHILS # (AUTO) 7.3 X10'3 (1.8-7.7); NEUTROPHILS % (AUTO) 62.5 % (42-75); PLATELET COUNT 212 X10'3 (140-440); RED BLOOD COUNT 4.02 X10'6 (4.20-5.60); WHITE BLOOD COUNT 11.7 X10'3 (4.5-11.0)
[2023-09-22 16:33] LABS: ANION GAP 10 (8-16); BLOOD UREA NITROGEN 12 MG/DL (7-18); BUN/CREATININE RATIO 14.1 (10.0-20.0); CALCIUM 7.7 MG/DL (8.5-10.1); CHLORIDE 106 MMOL/L (99-107); CREATININE 0.85 MG/DL (0.40-0.90); GLUCOSE 114 MG/DL (70-104); POTASSIUM 3.8 MMOL/L (3.5-5.1); PRO BRAIN NATRIURETIC PEPTIDE 56 PG/ML (0-125); SODIUM 142 MMOL/L (135-145); TOTAL CARBON DIOXIDE 26.4 MMOL/L (24-32); eCRCL 71 ML/MIN; eGFR 75 ML/MIN
== END 2023-09-22 19:23 | disposition left against medical advice (07) ==
LOC: ER 15:46
DX: R60.0 Localized edema (principal); J45.909 Unspecified asthma, uncomplicated; F12.90 Cannabis use, unspecified, uncomplicated; F15.90 Other stimulant use, unspecified, uncomplicated; Z88.1 Allergy status to other antibiotic agents; Z88.5 Allergy status to narcotic agent; Z79.899 Other long term (current) drug therapy; Z79.1 Long term (current) use of non-steroidal anti-inflammatories (NSAID); Z90.49 Acquired absence of other specified parts of digestive tract; Z98.890 Other specified postprocedural states; Z98.51 Tubal ligation status
CPT/HCPCS: 36415; 71045; 80048; 83880; 84484; 85025; 93005; 99285

== ENCOUNTER 2023-10-09 14:36 | Emergency (ER) | payer MEDICAID ==
[~2023-10-09] VITALS: Ht 157.5 cm; Wt 78.0 kg
[2023-10-09 14:50] VITALS: TEMP 98.3
[2023-10-09] MEDS ORDERED: ROPI0.5T37 PO ×2 (16:04→16:47)
[2023-10-09] MEDS ORDERED: OLAN5TAB75 PO (16:04)
[2023-10-09] MEDS ORDERED: LITH300C PO (16:04)
[2023-10-09] MEDS ORDERED: TRAZ-251 PO ×2 (16:04→16:47)
[2023-10-09 16:06] VITALS: BP 96/62; PULSE 56; RESP 16; O2SAT 95
[2023-10-09] MEDS ORDERED: LIT300C PO (16:47)
[2023-10-09] MEDS ORDERED: OLAN5TAB5 PO (16:47)
== END 2023-10-09 16:56 | disposition home or self-care (01) ==
LOC: ER 14:37
DX: Z00.00 Encounter for general adult medical examination without abnormal findings (principal); J45.909 Unspecified asthma, uncomplicated; F12.90 Cannabis use, unspecified, uncomplicated; F15.10 Other stimulant abuse, uncomplicated; Z88.1 Allergy status to other antibiotic agents; Z88.5 Allergy status to narcotic agent
CPT/HCPCS: 99281

== ENCOUNTER 2024-03-09 10:07 | Outpatient (CLI) | payer MEDICAID ==
[~2024-03-09 10:07] MED LIST changes: -IBUP-1985 PO; +LIT300C PO; +LITH300C PO; -METH-360 PO; -MICO44CM TOP; -NO HOME MEDS; -OLAN5TAB3 PO; +OLAN5TAB75 PO; -ONDA4TAB6 PO; -POTA-84 PO; +ROPI0.5T37 PO; +TRAZ-251 PO
== END 2024-03-09 23:59 | disposition home or self-care (01) ==
LOC: RAD 23:59
PROVIDERS: ATTEND Physician Assistant
DX: F11.20 Opioid dependence, uncomplicated (principal); R94.31 Abnormal electrocardiogram [ECG] [EKG]
CPT/HCPCS: 93005

== ENCOUNTER 2024-06-26 01:00 | Emergency (ER) | payer MEDICAID ==
[~2024-06-26] VITALS: Ht 157.5 cm; Wt 85.8 kg
[2024-06-26 01:06] VITALS: BP 154/94; PULSE 76; O2SAT 97
[2024-06-26] MEDS ORDERED: CYCL-1 PO (03:20)
[2024-06-26] MEDS ORDERED: NAPR-56 PO (03:20)
[2024-06-26 03:30] VITALS: RESP 18
[2024-06-26] MEDS: HYDROcodone/acetaminophen 10/325mg tab PO ONE (03:30)
[2024-06-26] MEDS: cyclobenzaprine 10mg tablet PO ONE (03:30)
[2024-06-26] MEDS: orphenadrine citrate 60mg/2ml inj. IM ONE (03:31)
[2024-06-26 03:40] VITALS: TEMP 98.5
== END 2024-06-26 03:48 | disposition home or self-care (01) ==
LOC: ER 01:01
DX: M54.59 Other low back pain (principal); M54.2 Cervicalgia; M62.838 Other muscle spasm; I25.2 Old myocardial infarction; J45.909 Unspecified asthma, uncomplicated; G89.29 Other chronic pain; M54.9 Dorsalgia, unspecified; F41.9 Anxiety disorder, unspecified; F32.A Depression, unspecified; F12.90 Cannabis use, unspecified, uncomplicated; F15.90 Other stimulant use, unspecified, uncomplicated; Z56.0 Unemployment, unspecified; Z59.00 Homelessness unspecified; Z98.51 Tubal ligation status; Z90.721 Acquired absence of ovaries, unilateral; Z90.49 Acquired absence of other specified parts of digestive tract; Z88.5 Allergy status to narcotic agent; Z88.1 Allergy status to other antibiotic agents; Z79.899 Other long term (current) drug therapy; Z72.89 Other problems related to lifestyle
CPT/HCPCS: 96372; 99283; J2360

== ENCOUNTER 2024-07-11 18:15 | Emergency (ER) | payer MEDICAID ==
[~2024-07-11] VITALS: Ht 157.5 cm; Wt 88.2 kg
[~2024-07-11 18:15] MED LIST changes: +CYCL-1 PO; +NAPR-56 PO
[2024-07-11 18:19] VITALS: BP 123/83; PULSE 122; O2SAT 99
[2024-07-11 21:10] VITALS: RESP 18
[2024-07-11] MEDS ORDERED: ketorolac trometh 30MG/ML vial 30 MG/ML VIAL IM ONE (21:20)
[2024-07-11 21:40] VITALS: TEMP 98.4
== END 2024-07-11 21:45 | disposition home or self-care (01) ==
LOC: ER 18:16
DX: M25.561 Pain in right knee (principal); J45.909 Unspecified asthma, uncomplicated; F41.9 Anxiety disorder, unspecified; F32.A Depression, unspecified; I25.2 Old myocardial infarction; G89.29 Other chronic pain; F12.90 Cannabis use, unspecified, uncomplicated; F15.90 Other stimulant use, unspecified, uncomplicated; Z88.5 Allergy status to narcotic agent; Z90.49 Acquired absence of other specified parts of digestive tract; Z79.899 Other long term (current) drug therapy; Z98.51 Tubal ligation status; Z90.721 Acquired absence of ovaries, unilateral; W19.XXXA Unspecified fall, initial encounter; Y93.89 Activity, other specified; Y92.89 Other specified places as the place of occurrence of the external cause; Y99.8 Other external cause status
CPT/HCPCS: 71045; 73564; 99284

== ENCOUNTER 2024-07-16 17:51 | Emergency (ER) | payer MEDICAID ==
[~2024-07-16] VITALS: Ht 160 cm; Wt 82.0 kg
[2024-07-16 18:21] VITALS: BP 129/65; PULSE 101; RESP 15; TEMP 98.6; O2SAT 100
[2024-07-16 18:57] LABS: URINE HCG NEGATIVE (NEG)
[2024-07-16 19:02] LABS: BILIRUBIN,URINE NEGATIVE (Neg); CLARITY,URINE SLIGHTLY CLOUDY (Clear); COLOR,URINE YELLOW (Yellow); GLUCOSE, URINE NEGATIVE (Neg); KETONES,URINE TRACE mg/dl (Neg); LEUKOCYTE ESTERASE ,URINE SMALL (Neg); NITRITES, URINE NEGATIVE (Neg); OCCULT BLOOD,URINE LARGE (Neg); PH,URINE 5.5 (4.8-8.0); PROTEIN,URINE 30 mg/dl (Neg); UA COLLECTION TYPE CLN CATCH MIDSTREAM; UROBILINOGEN,URINE 0.2 E.U/dL (0.2-1.0)
[2024-07-16 19:07] LABS: SQUAMOUS EPITHELIAL CELL,UR FEW /LPF (FEW)
[2024-07-16 19:08] LABS: BACTERIA,URINE 1+ /HPF (Neg); RBC,URINE 20-50 /HPF (0-2); WBC,URINE 0-4 /HPF (0-4)
[2024-07-16] MEDS ORDERED: DOXY-1 PO (19:47)
[2024-07-16] MEDS: CefTRIAXone 500MG IM Kit w/LIDOcaine IM ONE (19:58)
[2024-07-16] MEDS: DOXYCYCLINE 100MG CAPSULE PO STA (19:58)
[2024-07-19 06:24] LABS: CHLAMYDIA TRACHOMATIS, NAA Negative (Negative)
== END 2024-07-16 20:21 | disposition home or self-care (01) ==
LOC: ER 17:53
DX: N89.8 Other specified noninflammatory disorders of vagina (principal); A54.9 Gonococcal infection, unspecified; G89.29 Other chronic pain; I25.2 Old myocardial infarction; F31.9 Bipolar disorder, unspecified; J45.909 Unspecified asthma, uncomplicated; Z88.5 Allergy status to narcotic agent; Z88.1 Allergy status to other antibiotic agents; Z79.899 Other long term (current) drug therapy; Z90.49 Acquired absence of other specified parts of digestive tract; Z90.721 Acquired absence of ovaries, unilateral; Z98.51 Tubal ligation status
CPT/HCPCS: 36415; 81001; 81025; 87491; 87591; 96372; 99283; J0696

== ENCOUNTER 2024-07-25 09:37 | Emergency (ER) | payer MEDICAID ==
[~2024-07-25] VITALS: Ht 157.5 cm; Wt 87.9 kg
[2024-07-25 09:38] VITALS: BP 130/71; PULSE 116; RESP 16; TEMP 98; O2SAT 96
[2024-07-25] MEDS: fluconazole 150mg tablet PO ONE (11:00)
== END 2024-07-25 11:12 | disposition home or self-care (01) ==
LOC: ER 09:37
DX: B37.31 Acute candidiasis of vulva and vagina (principal); I25.2 Old myocardial infarction; J45.909 Unspecified asthma, uncomplicated; G89.29 Other chronic pain; M54.9 Dorsalgia, unspecified; F41.9 Anxiety disorder, unspecified; F32.A Depression, unspecified; F12.90 Cannabis use, unspecified, uncomplicated; F15.90 Other stimulant use, unspecified, uncomplicated; Z88.5 Allergy status to narcotic agent; Z90.721 Acquired absence of ovaries, unilateral; Z90.49 Acquired absence of other specified parts of digestive tract; Z98.51 Tubal ligation status; Z88.1 Allergy status to other antibiotic agents; Z79.1 Long term (current) use of non-steroidal anti-inflammatories (NSAID); Z79.899 Other long term (current) drug therapy; Z56.0 Unemployment, unspecified; Z59.00 Homelessness unspecified; Z72.89 Other problems related to lifestyle
CPT/HCPCS: 99281

== ENCOUNTER 2025-03-06 23:19 | Emergency (ER) | payer MEDICAID ==
[~2025-03-06 23:19] MED LIST changes: -NAPR-56 PO
[2025-03-06 23:24] VITALS: BP 106/73; PULSE 77; O2SAT 100
--- NOTE | 2025-03-07 01:09 | Physician Documentation ---
History of Present Illness ~ General Chief Complaint: Multiple Medical Complaints Stated Complaint: BODY SWELLING Time Seen by MD: 01:02 Primary Medical Doctor: None History of Present Illness Initial Comments This is a 40-year-old female who presents for evaluation of generalized body swelling, mostly around her waistline, as well as burning sensation in the right upper quadrant, her neck, her back. No obvious trigger provocation. She has been experiencing these symptoms for months if not years, however she feels that they got worse in the last three days since she got out of skilled nursing. She spent four months in skilled nursing and has been intermittently experiencing the symptoms at the time as well, but did not seek medical attention. She has not been able to elicit any palliating or aggravating factors. She did not attempt to treat it. She did use to take Lasix in the past, however she does not anymore. She does not have primary care who would prescribe her Lasix. She denies any chest pain or difficulty breathing. She also reports restless leg sensation that has been present for years, but now it is annoying her and preventing her from sleeping. She denies any recent methamphetamines or cocaine use. Medication Reconciliation Allergies: Coded Allergies: codeine (Verified Allergy, Mild, 03/06/25) Cephalexin Monohydrate (Verified Adverse Reaction, Unknown, VOMITING, 03/06/25) Scheduled Cyclobenzaprine* (Cyclobenzaprine*), 1 TAB PO BID Furosemide (Furosemide), 1 TAB PO DAILY [place] Carbonate (LITHIUM CARBONATE tablet), 2 TAB PO Q12H Ropinirole Hcl (Ropinirole Hcl), 1 TAB PO HS Trazodone HCl (Trazodone HCl), 1 TAB PO HS Miscellaneous Medications [place] Carbonate ([place] Carbonate), 2 CAP PO, (Reported) Olanzapine (Olanzapine), 1 TAB PO, (Reported) Ropinirole Hcl (Ropinirole Hcl), 1 TAB PO, (Reported) Trazodone HCl (Trazodone HCl), 2 TAB PO, (Reported) Past Medical History Past Medical History: Myocardial Infarction, Asthma, Hernia, Chronic Back Pain, Extremity Fracture, *INFECTIOUS DZ*, MRSA Abscess, Anxiety, Bipolar, Depression Past Surgical History: abdominal surgery, cholecystectomy, , tubal ligation, other Other Past Surgical History: left oophorectomy Other Past Family History: NONE Alcohol Use: Occasionally Drug Use: marijuana, methamphetamine Lives with: Spouse, Family Lives In: Homeless Occupation: unemployed Review of Systems ROS 10 point review of systems was performed and unless noted above in HPI is negative for acute process/complaint. Physical Exam Physical Exam Vital Signs: Heart Rate: 77, Respiratory Rate: 16, BP: 106/73, Pulse Oximetry: 100 Physical Exam GENERAL: Awake, alert, oriented, GCS 15, no apparent distress, non-toxic appearing, answers questions, follows commands appropriately. High BMI patient. HEENT: Atraumatic, normocephalic, pupils equal, extraocular muscles intact, sclerae anicteric, mucus membranes moist, oropharynx is clear, no stridor. NECK: supple, full active range of motion, trachea midline, no thyromegaly, no lymphadenopathy, no JVD. CARDIOVASCULAR: regular rate/rhythm, no murmurs/gallops/rubs, Pulses are 2+ in all extremities and symmetric. Capillary refill less than 2 seconds. PULMONARY: Nonlabored, good air movement ,no respiratory distress, speaking in full sentences, clear to auscultation bilaterally, no wheezing, no ronchi, no rales, no accessory muscle use. GASTROINTESTINAL: Soft, rotund, non-tender, non-distended, normal active bowel sounds, no organomegaly, no pulsatile masses, no CVA tenderness. NEUROLOGIC: Lucid with normal mental status. Normal facial symmetry. Moves all extremities symmetrically and with purpose. No truncal ataxia. Speech is fluid without evidence of dysarthria or aphasia, no focal deficits appreciated. MUSCULOSKELETAL: There is full range of motion of all extremities. There is no joint pain or joint swelling or joint erythema. There is no muscle pain or tenderness or swelling. EXTREMITIES: warm, well-perfused, no cyanosis, no clubbing, no edema, no acute deformities. Skin: warm, dry, no rashes or lesions, no jaundice, no petechiae orpurpura. No ecchymosis. PSYCHIATRIC: Normal affect, normal insight, normal concentration. Focused exam: [] Progress Results/Orders Results/Orders Orders - ANURAG TORRES DO Lipase (03/07/25 01:02) PBNP (03/07/25 01:02) MG (03/07/25 01:02) Hs Troponin I W Calculations (03/07/25 01:02) CMP (03/07/25 01:02) Ethanol (03/07/25 01:02) Hs Troponin I W Calculations (03/07/25 01:37) Completed Orders - ANURAG TORRES DO Cbc/Diff (03/07/25 01:02) Urinalysis, Cult If Indicated (03/07/25 01:02) Drug Screen, Urine (03/07/25 01:02) Electrocardiogram (03/07/25 ) Vital Signs 03/06/25 03/07/25 23:24 02:04 Pulse 77 Resp 16 16 B/P (MAP) 106/73 Pulse Ox 100 Laboratory Tests Test 03/07/25 01:05 03/07/25 01:15 Urine Specimen Description Cln catch midstream Urine Color Yellow Urine Clarity Clear Urine pH 6.5 Urine Specific [place] 1.010 Urine Protein Negative Urine Glucose (UA) Negative Urine Ketones Negative Urine Occult Blood Negative Urine Nitrite Negative Urine Bilirubin Negative Urine Urobilinogen 0.2 Urine Leukocyte Esterase Negative Urine Culture Indicated Not ind Volume Urine Centrifuged 10 ml Urine Comment Urine Opiates Screen Negative Urine Methadone Screen Negative Urine Fentanyl Screen Negative Urine Barbiturates Screen Negative Urine Phencyclidine Screen Negative Urine Amphetamines Screen Positive Urine Benzodiazepines Screen Negative Urine Cocaine Screen Negative Urine Cannabinoids Screen Negative Drug Screen Comment White Blood Count 10.9 Red Blood Count 4.09 L Hemoglobin 12.5 Hematocrit 36.9 Mean Corpuscular Volume 90.2 Mean Corpuscular Hemoglobin 30.7 Mean Corpuscular Hemoglobin Concent 34.0 Red Cell Distribution Width 12.5 Platelet Count 202 Mean Platelet Volume 8.9 Neutrophils (%) (Auto) 55.3 Lymphocytes (%) (Auto) 28.8 Monocytes (%) (Auto) 10.0 Eosinophils (%) (Auto) 5.9 Basophils (%) (Auto) 0 Neutrophils # (Auto) 6.0 Lymphocytes # (Auto) 3.1 Monocytes # (Auto) 1.1 H Eosinophils # (Auto) 0.6 Basophils # (Auto) 0.0 CBC Comment Sodium Level 143 Potassium Level 3.7 Chloride Level 106 Carbon Dioxide Level 31.5 Anion Gap 6 L Blood Urea Nitrogen 10 Creatinine 0.86 Estimated GFR/1.73 m2 73 BUN/Creatinine Ratio 11.6 Glucose Level 92 Calcium Level 8.6 Magnesium Level 1.9 Total Bilirubin 0.2 Aspartate Amino Transf (AST/SGOT) 34 Alanine Aminotransferase (ALT/SGPT) 37 Alkaline Phosphatase 75 Pro-B-Type Natriuretic Peptide 93 Total Protein 6.6 Albumin 3.3 L Globulin 3.3 Albumin/Globulin Ratio 1.0 L Lipase 39 Chemistry Comments Medical Decision Making Findings Facility Status: ED Holds, [facility] process The plan was discussed with the patient, who demonstrates clear understanding of the plan and is in agreement with the plan unless otherwise noted in the chart. All questions have been answered, all concerns were addressed unless otherwise documented. I was available throughout their ED stay for frequent reassessment and questions. Differential Diagnoses (considered and possible or likely): [Fluid retention from CHF, weight gain from calorie over abundance, with a respect to burning sensation in her neck, could be neuropathic pain, less likely neck fracture subluxation as she has a no evidence of trauma and has full range of motion. With a respect to right upper quadrant burning pain, could represent gastritis, pancreatitis, gallbladder disease. Less likely to represent other surgical pathology such as appendicitis or SBO. With a respect to burning back pain could represent pyelitis, pyelonephritis, UTI, less likely lumbar spine fracture or subluxation, muscle spasm and lumbago are also in differential diagnosis.] ??Differential Diagnoses (considered and unlikely, not requiring evaluation currently): [Clinically no evidence of cauda equina or conus medullaris syndrome as she has not no saddle paresthesias, no bladder or bowel incontinence, no urinary retention.] MDM Data Please see [facility] for the following: Independent Historians and external Records Review. Historian: [Patient] Independent Historians: ?[Record review] Medication Management: [Reviewed medication list] Social History and determinants: [Reviewed] Please see the body of the note for the following: Any independent interpretations of ECG, imaging studies. All vitals signs/haemodynamics, ordered tests were independently reviewed and interpreted by myself. Nursing triage complaint and vitals reviewed, additional nursing notes were reviewed as available and I agree unless otherwise noted or documented in contradiction in the chart Vital Signs: Independently reviewed Labs: Independently interpreted Imaging: Independently interpreted Old Medical Records: Independently reviewed, see [facility] for relevant summary and information Pulse Oximetry: [98%] interpreted as [normal on room air] by me Additionally notably showing: [Hemodynamics reviewed. The patient isn't febrile, not tachycardic, no evidence of hypotension respiratory distress. CBC is normal, no leukocytosis, no anemia, normal platelets, no significant neutrophilic predominance. Chemistry was obtained. Shows normal BNP. Metabolic panel is unremarkable. Normal renal function, normal electrolytes. Lipase is also normal. UA is nondiagnostic for UTI. Toxicology, unfortunately, positive for amphetamines. It appears that lady lied to me about not using meth since getting out of skilled nursing.] Tests considered but not ordered include: [Right upper quadrant ultrasound has been considerably she is already status post cholecystectomy] Social Determinants of Health Impact: Patient was evaluated in [facility] [place] to healthcare due to below par ratio of patient to medical providers. [] Comorbid Conditions Impacting Present Evaluation and Care/Treatment: [Methamphetamine abuse] Management Discussions with other Healthcare Providers: [None] Treatment and Disposition Medication Management (Given or considered): []. See EMR for details Consideration for Hospitalization/Escalation/Deescalation of Care: Admission for observation has been considered, [however the patient is able to tolerate p.o., their symptoms are controlled, they are able to rely on oral medications, and their chief complaint/diagnosis can be managed on outpatient basis.] ?ED Course:?[No clinical deterioration] ?Shared decision making:?[Patient is hemodynamically stable for discharge home with follow with their primary care provider. [ ] Specific and cautious return precautions provided and discussed with full understanding. Any incidental findings were also discussed and follow up recommendations given. [] All questions answered. Patient/family were able to verbalize back return precautions. Patient/family agree to plan. Copies of imaging and laboratory studies were provided.] Code status:?FULL Please see the full Electronic Medical Record for full details of nursing documentation, medications list, other records of complete past medical history and conditions, vital signs, laboratory studies, and any radiologic study inter pretations by radiologists. Portions of this note were completed using [employer] dictation software and as a result there may exist minor errors in spelling. I have reviewed elements of past family and social history and agree as included in note. Departure Disposition: 01 HOME / SELF CARE / HOMELESS Impression: Primary Impression: Burning pain Additional Impressions: Right upper quadrant pain Neck pain Back pain Restless leg Methamphetamine abuse Abdominal swelling, generalized Condition: Improved Additional Instructions: Please establish with a primary care provider so they can prescribe him medication for your restless legs. It appears that it is no explanation for your abdominal distention, but there is no evidence of congestive heart failure exacerbation at this time. Your urine drug screen was positive for methamphetamines, I suspect that they are making your restless legs worse. Referrals: NO PRIMARY CARE PROVIDER (PCP) Education Educated: Patient Educated regarding: diagnosis, treatment, prognosis, need for follow up Signature Scribe Signature: No scribe Attestation: Date: Mar 07, 2025 Time: 01:09 This note accurately reflects clinical decisions, work performed by myself, DO BRIAN Marx NICHOLAS M DO Mar 07, 2025 01:09
[2025-03-07 01:14] LABS: LEUKOCYTE ESTERASE ,URINE NEGATIVE (Neg); NITRITES, URINE NEGATIVE (Neg); OCCULT BLOOD,URINE NEGATIVE (Neg)
[2025-03-07 01:19] LABS: UA COLLECTION TYPE CLN CATCH MIDSTREAM
[2025-03-07 01:27] LABS: URINE AMPHETAMINE SCREEN POSITIVE (Neg); URINE BARBITUATE SCREEN NEGATIVE (Neg); URINE BENZODIAZEPINES SCREEN NEGATIVE (Neg); URINE CANNABINOID SCREEN NEGATIVE (Neg); URINE COCAINE SCREEN NEGATIVE (Neg); URINE METHADONE SCREEN NEGATIVE (Neg); URINE OPIATE SCREEN NEGATIVE (Neg); URINE PHENCYCLIDINE SCREEN NEGATIVE (Neg)
[2025-03-07 01:46] LABS: MEAN PLATELET VOLUME 8.9 FL (7.4-10.4); RED CELL DISTRIBUTION WIDTH 12.5 % (11.5-14.5)
--- NOTE | 2025-03-07 01:46 | ELECTROCARDIOGRAPH REPORT ---
[facility] Test Date: 2025-03-07 Test Time: 01:44:25 Pat Name: TODD SIM Department: [facility]- Patient ID: [facility]-[id number] Room: Gender: F Executive Director: : 1985 Requested By: ANURAG TORRES Order Number: [id number] Reading MD: Measurements Intervals [place] Rate: 70 P: 76 AR: 140 QRS: 80 QRSD: 97 T: 63 QT: 445 QTc: 481 Interpretive Statements Atrial-paced complexes Please click the below link to view image of tracing.
[2025-03-07 02:03] LABS: CREATININE 0.86 MG/DL (0.40-0.90); PRO BRAIN NATRIURETIC PEPTIDE 93 PG/ML (0-125); TOTAL CARBON DIOXIDE 31.5 MMOL/L (24-32); eGFR 73 ML/MIN
[2025-03-07 02:04] VITALS: RESP 16
[2025-03-07 02:18] LABS: ETHANOL < 10 MG/DL (<10)
== END 2025-03-07 02:25 | disposition home or self-care (01) ==
LOC: ER 23:21
DX: R10.11 Right upper quadrant pain (principal); M54.2 Cervicalgia; M54.9 Dorsalgia, unspecified; R19.07 Generalized intra-abdominal and pelvic swelling, mass and lump; G25.81 Restless legs syndrome; F15.10 Other stimulant abuse, uncomplicated; F31.9 Bipolar disorder, unspecified; G89.29 Other chronic pain; I25.2 Old myocardial infarction; J45.909 Unspecified asthma, uncomplicated; F41.9 Anxiety disorder, unspecified; F12.90 Cannabis use, unspecified, uncomplicated; Z88.5 Allergy status to narcotic agent; Z86.14 Personal history of Methicillin resistant Staphylococcus aureus infection; Z88.1 Allergy status to other antibiotic agents; Z90.49 Acquired absence of other specified parts of digestive tract; Z98.51 Tubal ligation status; Z95.0 Presence of cardiac pacemaker; Z90.721 Acquired absence of ovaries, unilateral; Z72.89 Other problems related to lifestyle; Z56.0 Unemployment, unspecified; Z59.02 Unsheltered homelessness; Z20.822 Contact with and (suspected) exposure to COVID-19
CPT/HCPCS: 36415; 80053; 80305; 80320; 81003; 83690; 83735; 83880; 84484; 85025; 93005; 99284

== ENCOUNTER 2025-03-19 11:39 | Emergency (ER) | payer MEDICAID ==
[~2025-03-19] VITALS: Ht 160 cm; Wt 93.7 kg
[2025-03-19 12:02] VITALS: BP 144/76; PULSE 94; RESP 16; TEMP 97.6; O2SAT 99
[2025-03-19] MEDS ORDERED: KEN0.1O TOP (12:52)
--- NOTE | 2025-03-19 12:53 | Physician Documentation ---
History of Present Illness ~ Chief Complaint: Rash Stated Complaint: RASH Time Seen by MD: 12:38 Primary Medical Doctor: None Source: patient Mode of Arrival: POV Exam Limitations: no limitations HPI Patient noticed rash under and between breast for the last couple of days and some rash to the bra strap and back. Patient states the rash itches no other associated symptoms including fever shortness of breath or chest pain Medication Reconciliation Allergies: Coded Allergies: codeine (Verified Allergy, Mild, 03/19/25) Cephalexin Monohydrate (Verified Adverse Reaction, Unknown, VOMITING, 03/19/25) Scheduled Cyclobenzaprine* (Cyclobenzaprine*), 1 TAB PO BID Furosemide (Furosemide), 1 TAB PO DAILY [place] Carbonate (LITHIUM CARBONATE tablet), 2 TAB PO Q12H Ropinirole Hcl (Ropinirole Hcl), 1 TAB PO HS Trazodone HCl (Trazodone HCl), 1 TAB PO HS Miscellaneous Medications [place] Carbonate ([place] Carbonate), 2 CAP PO, (Reported) Olanzapine (Olanzapine), 1 TAB PO, (Reported) Ropinirole Hcl (Ropinirole Hcl), 1 TAB PO, (Reported) Trazodone HCl (Trazodone HCl), 2 TAB PO, (Reported) Past Medical History Past Medical History: Myocardial Infarction, Asthma, Hernia, Chronic Back Pain, Extremity Fracture, *INFECTIOUS DZ*, MRSA Abscess, Anxiety, Bipolar, Depression Past Surgical History: abdominal surgery, cholecystectomy, , tubal li gation, other Other Past Surgical History: left oophorectomy Other Past Family History: NONE Alcohol Use: Occasionally Drug Use: marijuana, methamphetamine Lives with: Spouse, Family Lives In: Homeless Occupation: unemployed Review of Systems All Other Systems at this time: Reviewed and Negative Integumentary: Reports: see HPI Physical Exam Vital Signs: RN Vital Signs have been reviewed: Yes, Temperature: 97.6, Source: Temporal, Heart Rate: 94, Respiratory Rate: 16, BP: 144/76, Pulse Oximetry: 99, Weight: 93.700 Physical Exam General: Alert, no apparent distress. HEENT: moist mucous membranes. Neck: Full range of motion. Respiratory: No respiratory distress speaking in full sentences Chest: No accessory muscle use. Cardiovascular: Appears well perfused Neurologic: Oriented x4. Psychiatric: Normal mood and affect. Skin: Erythematous papule rash under breast and between breast no discharge clearly defined borders Progress Results/Orders Results/Orders Vital Signs 03/19/25 12:02 Temp 97.6 Pulse 94 Resp 16 B/P (MAP) 144/76 Pulse Ox 99 Medical Decision Making Additional information obtaine: N/A Findings Papular like rash with complaints of pruritus. Potentially contact dermatitis versus candidiasis as where it is at is dark warm and moist. Discussed hygiene steroid shot provided and cream to follow up with primary care and dermatology Differential Dx:Considerations: Include: Atopic dermatitis, Candidiasis, Herpes simplex, Scabies, Tinea, Varicella, Viral exanthema Departure Time of Disposition: 12:51 Disposition: 01 HOME / SELF CARE / HOMELESS Impression: Primary Impression: Skin irritation Condition: Stable Discharge Instructions: Pruritus Additional Instructions: Use cream as prescribed and follow up with primary care for potential dermatology referral as needed Referrals: NO PRIMARY CARE PROVIDER (PCP) Prescriptions Triamcinolone Acetonide 0.1% Crm* (Kenalog 0.1% Crm*) 1 Applic Tube 1 APPLIC TOP Q12H for 10 Days, #80 GM Prov: FELISHA GUNN NP 03/19/25 Education Educated: Patient Educated regarding: diagnosis, treatment, need for follow up Signature Scribe Signature: No scribe Attestation: The note accurately reflects work and decisions made by me.Felisha GONZALES 03/19/25 12:52 FELISHA GUNN NP Mar 19, 2025 12:53
[2025-03-19] MEDS: triamcinolone acetonide 40mg/ml inj IM ONE (13:07)
== END 2025-03-19 13:11 | disposition home or self-care (01) ==
LOC: ER 11:39
DX: L98.8 Other specified disorders of the skin and subcutaneous tissue (principal); J45.909 Unspecified asthma, uncomplicated; I25.2 Old myocardial infarction; G89.29 Other chronic pain; F12.90 Cannabis use, unspecified, uncomplicated; F15.90 Other stimulant use, unspecified, uncomplicated; F41.9 Anxiety disorder, unspecified; F31.9 Bipolar disorder, unspecified; Z88.5 Allergy status to narcotic agent; Z88.1 Allergy status to other antibiotic agents; Z98.51 Tubal ligation status; Z90.49 Acquired absence of other specified parts of digestive tract; Z90.721 Acquired absence of ovaries, unilateral; Z86.14 Personal history of Methicillin resistant Staphylococcus aureus infection; Z79.899 Other long term (current) drug therapy; Z72.89 Other problems related to lifestyle; Z56.0 Unemployment, unspecified; Z59.00 Homelessness unspecified
CPT/HCPCS: 96372; 99283; J3301

== ENCOUNTER 2025-05-06 06:25 | Emergency (ER) | payer MEDICAID ==
[~2025-05-06] VITALS: Ht 157.5 cm; Wt 90.5 kg
--- NOTE | 2025-05-06 06:52 | Physician Documentation ---
History of Present Illness ~ Chief Complaint: Vaginal Bleeding Stated Complaint: BLOOD IN URINE Time Seen by MD: 06:34 Primary Medical Doctor: None HPI The patient is a 40-year-old female P4-0-2-4 (one miscarriage was a right-sided tubal ) who complains of pelvic bleeding and lower abdominal pain for the past 11 days. Her last menstrual period was about a month ago. They are not always regular. No history of trauma. Medication Reconciliation Allergies: Coded Allergies: codeine (Verified Allergy, Mild, 05/06/25) Cephalexin Monohydrate (Verified Adverse Reaction, Unknown, VOMITING, 05/06/25) Scheduled Cyclobenzaprine* (Cyclobenzaprine*), 1 TAB PO BID Furosemide (Furosemide), 1 TAB PO DAILY [place] Carbonate (LITHIUM CARBONATE tablet), 2 TAB PO Q12H Ropinirole Hcl (Ropinirole Hcl), 1 TAB PO HS Trazodone HCl (Trazodone HCl), 1 TAB PO HS Miscellaneous Medications [place] Carbonate ([place] Carbonate), 2 CAP PO, (Reported) Olanzapine (Olanzapine), 1 TAB PO, (Reported) Ropinirole Hcl (Ropinirole Hcl), 1 TAB PO, (Reported) Trazodone HCl (Trazodone HCl), 2 TAB PO, (Reported) Past Medical History Past Medical History: Myocardial Infarction, Asthma, Hernia, Chronic Back Pain, Extremity Fracture, *INFECTIOUS DZ*, MRSA Abscess, Anxiety, Bipolar, Depression Past Surgical History: abdominal surgery, cholecystectomy, , tubal ligation, other Other Past Surgical History: left oophorectomy Other Past Family History: NONE Alcohol Use: Occasionally Drug Use: marijuana, methamphetamine Lives with: Spouse, Family Lives In: Homeless Occupation: unemployed Review of Systems ROS Constitutional: Denies chills, fatigue, fever, weight gain or weight loss. HEENT: Denies hearing loss, sinus pressure or visual changes. Respiratory: Denies cough, shortness of breath or wheezing. Cardiovascular: Denies chest pain, pain while walking (claudication), edema or palpitations. Gastrointestinal: Denies blood in stool, constipation, diarrhea, heartburn, loss of appetite, nausea or vomiting. Genitourinary: Pelvic bleeding, alternates between light and heavy Metabolic/Endocrine: Denies cold intolerance, heat intolerance, excessive thirst (polydipsia) or excessive hunger (polyphagia). Neurological: Denies dizziness, extremity numbness, extremity weakness, headaches, seizures or tremors. Psychiatric: Denies anxiety or depression. Integumentary: Denies breast discharge, breast lump, hives, mole change(s), rash or skin lesion. Musculoskeletal: Denies back pain, joint pain, joint swelling or neck pain. Hematologic: Denies easily bleeding, easily bruises, lymphedema or issues with blood clots. Immunologic: Denies food allergies or seasonal allergies. Physical Exam Vital Signs: Temperature: 97.2, Source: Temporal, Heart Rate: 99, Respiratory Rate: 16, BP: 137/81, Pulse Oximetry: 99, Weight: 90.500 Oxygen Flow Rate: 0 Physical Exam Physical Exam Vitals and nursing note reviewed. Constitutional: General: Patient is awake, alert, oriented x 4 in no acute distress and well appearing. Speech is clear and lucid. Appearance: Normal appearance. Patient is not ill-appearing, toxic-appearing or diaphoretic. HENT: Head: Normocephalic and atraumatic. Mouth/Throat: Mouth: Mucous membranes are moist. Pharynx: Oropharynx is clear. Eyes: General: No scleral icterus. Extraocular Movements: Extraocular movements intact. Pupils: Pupils are equal, round, and reactive to light. Neck: Supple, no Kernig or Brudzinski sign. Cardiovascular: Rate and Rhythm: Normal rate and regular rhythm. Heart sounds: No murmur heard. Pulmonary: Effort: No respiratory distress. Breath sounds: No wheezing, rhonchi or rales. Abdominal: General: There is no distension. Palpations: There is no fluid wave, hepatomegaly or mass. Tenderness: There is no abdominal tenderness. There is no guarding. Musculoskeletal: General: No swelling or deformity. Skin: Coloration: Skin is not jaundiced. Findings: No erythema or rash. Neurological: Mental Status: Patient is alert. Progress Results/Orders Results/Orders Orders - PURNIMA CESAR MD [facility] (05/06/25 06:43) Ultrasound Pelvis W/Orwo Dplx (05/06/25 ) Cult Urine + [address] (05/06/25 09:46) Completed Orders - PURNIMA CESAR MD Cbc/Diff (05/06/25 06:40) Bmp Er (05/06/25 06:40) Hcg Serum Qt (05/06/25 06:40) Lipase (05/06/25 06:40) Pt Inr (05/06/25 06:40) Ultrasound Pelvis W/Orwo Dplx (05/06/25 ) Ua W/Microscopic, Cult If Ind (05/06/25 08:25) Vital Signs 05/06/25 05/06/25 05/06/25 05/06/25 06:30 07:00 08:00 09:47 Temp 97.2 97.2 97.2 Pulse 99 82 86 Resp 16 18 18 18 B/P (MAP) 137/81 113/59 (77) 112/60 (77) Pulse Ox 99 99 100 O2 Flow Rate 0 0 0 Laboratory Tests Test 05/06/25 07:25 05/06/25 08:25 White Blood Count 8.8 Red Blood Count 5.05 Hemoglobin 15.0 Hematocrit 44.4 Mean Corpuscular Volume 87.9 Mean Corpuscular Hemoglobin 29.8 Mean Corpuscular Hemoglobin Concent 33.9 Red Cell Distribution Width 12.6 Platelet Count 217 Mean Platelet Volume 8.6 Neutrophils (%) (Auto) 63.6 Lymphocytes (%) (Auto) 25.5 Monocytes (%) (Auto) 9.9 Eosinophils (%) (Auto) 1.0 Basophils (%) (Auto) 0 Neutrophils # (Auto) 5.6 Lymphocytes # (Auto) 2.2 Monocytes # (Auto) 0.9 Eosinophils # (Auto) 0.1 Basophils # (Auto) 0.0 CBC Comment Prothrombin Time 10.1 INR International Normalized Ratio 1.0 Coagulation Comments Sodium Level 139 Potassium Level 3.5 Chloride Level 104 Carbon Dioxide Level 27.2 Anion Gap 8 Blood Urea Nitrogen 8 Creatinine 0.61 Estimated GFR/1.73 m2 > 90 BUN/Creatinine Ratio 13.1 Glucose Level 86 Calcium Level 8.8 Albumin 3.6 Lipase 28 HCG Beta Subunit < 1.0 Chemistry Comments Urine Specimen Description Cln catch midstream Urine Color Red Urine Clarity Slightly cloudy Urine pH 6.5 Urine Specific [place] 1.010 Urine Protein 100 H Urine Glucose (UA) Negative Urine Ketones Trace H Urine Occult Blood Large H Urine Nitrite Negative Urine Bilirubin Negative Urine Urobilinogen 1.0 Urine Leukocyte Esterase Trace H Urine RBC 20-50 Urine WBC 0-4 Urine Squamous Epithelial Cells Few Urine Transitional Epithelial Cells Few Urine Amorphous Phosphates 1+ Urine Bacteria 1+ Urine Mucus Few Urine Culture Indicated Indicated Volume Urine Centrifuged 10 ml Urine Comment Medical Decision Making Additional information obtaine: old records Findings This 40-year-old female presents with vaginal bleeding on and off for the last 11 days. Her hemoglobin is 15. test negative. Vital signs stable. Pelvic ultrasound unremarkable. I am going to prescribe TXA and ibuprofen. Urinary Diff Dx:Considerations: Include: Ectopic , Musculoskeletal pain, Ovarian torsion, UTI; Unlikely: AAA, , Aortic dissection, Appendicitis, Bowel obstruction, Cholelithiasis, Choleangitis, DJD, Hepatitis, HNP, Impaction, Intrauterine , Pancreatitis, PID, Post-Op complication, Pyelonephritis, Renal failure, Strain, Urinary Obstruction, Urolithiasis, Urinary retention, Vaginitis, Other Genital Diff Dx:Considerations: Include: Dsymenorrhea, Hormonal, Menometrorrhagia, Menstrual bleeding; Unlikely: -Complete, - Incomplete, -Inevitable, Ablortion-Missed, -Threatened, Abruptio placentae, Bartholin abscess, Bartholin cyst, Blood loss anemia, Constipation, Cervicitis, Ectopic , Foreign body, Hidradenitis suppurativa, Intrauterine , Menorrhagia, Myomatous uterus, Perianal abscess, Physiologic discharge, Pinworms, PID, Placenta previa, , Precipitous Hct, Trauma, UTI, Vaginitis(osis)-Atrophic, Vaginitis, Vaginitis(osis)- Bacterial, Vaginitis(osis)-Candidal, Vaginitis(osis)-Contact, Vaginitis(osis)- Herpes, Vaginitis(osis)-Trich., Other Departure Disposition: 01 HOME / SELF CARE / HOMELESS Impression: Primary Impression: Menorrhagia Condition: Stable Additional Instructions: It is important to see your doctor or primary care provider. Emergency care may be incomplete without proper follow-up. Symptoms sometimes change or new sympto ms might arise after you leave the emergency department. It is important that you call your doctor if you become worse in any way, or return to the emergency department. You are strongly urged to follow-up with your physician to assure complete and thorough care. Please call your doctor's office today, and informed them that you were seen in the emergency department, and that you need to be seen immediately for close follow-up. If you do not have a primary care doctor we encourage you to proactively seek a local physician for close follow-up. Consider local clinics, [facility], or local [facility] [place]. Prior to discharge we spoke at length concerning symptoms that would merit reevaluation, but please return to the emergency department for any symptoms that are concerning to you, and we will be happy to continue your evaluation and treatment. Please note you can always return to the emergency department if you are having difficulty coordinating close follow-up. If medications were prescribed, you should fill them at your local pharmacy immediately and take only as prescribed. Bring your new medications to your doctors follow-up visit to discuss any changes that would be necessary. Please check [facility] for any results you did not receive in the Emergency Department: often we are unable to get all your tests back before you leave, and these tests need to be reviewed by your PCP and yourself. You can also call Medical Records if you are unable to access the internet to see [facility]. Return to the emergency department immediately for worsening chest pain, difficulty breathing, sweating, or other concerning emergent symptoms. Referrals: NO PRIMARY CARE PROVIDER (PCP) Prescriptions Ibuprofen (Ibuprofen) 600 Mg Tablet 1 TAB PO Q6H PRN for pain, #30 TAB Prov: PURNIMA CESAR MD 05/06/25 Tranexamic Acid (Tranexamic Acid) 650 Mg Tablet 2 TAB PO Q8H for 5 Days, #30 TAB 0 Refills Prov: PURNIMA CESAR MD 05/06/25 Education Educated: Patient Educated regarding: diagnosis, treatment, need for follow up Signature Scribe Signature: . Attestation: . PURNIMA CESAR MD May 06, 2025 06:52
[2025-05-06 07:47] LABS: MEAN PLATELET VOLUME 8.6 FL (7.4-10.4); RED CELL DISTRIBUTION WIDTH 12.6 % (11.5-14.5)
[2025-05-06 07:59] LABS: INR 1.0 INR
[2025-05-06 08:08] LABS: CREATININE 0.61 MG/DL (0.40-0.90); TOTAL CARBON DIOXIDE 27.2 MMOL/L (24-32); eCRCL 97 ML/MIN; eGFR > 90 ML/MIN
--- NOTE | 2025-05-06 08:48 | RADIOLOGY REPORT ---
INDICATION: vaginal bleeding, pelvic pain TECHNIQUE: Multiple real-time grayscale transabdominal sonographic images along with color and duplex Doppler of the uterus and ovaries were obtained. COMPARISON: None FINDINGS: The uterus measures 6.3 x 3.2 x 5.1 cm. The endometrial stripe measures 0.8 cm. Right ovary measures 2.0 x 1.1 x 1.1 cm with normal Doppler color flow Left ovary measures 1.4 x 0.9 x 0.7 cm with normal Doppler color flow. Left ovarian cyst measures 0.6 cm. IMPRESSION: Grossly unremarkable pelvic ultrasound.
[2025-05-06 09:18] LABS: LEUKOCYTE ESTERASE ,URINE TRACE (Neg); OCCULT BLOOD,URINE LARGE (Neg)
[2025-05-06 09:44] LABS: NITRITES, URINE NEGATIVE (Neg); UA COLLECTION TYPE CLN CATCH MIDSTREAM
[2025-05-06 09:46] LABS: AMORPHOUS PHOSPHATES 1+; MUCUS STRANDS FEW /LPF (Neg); SQUAMOUS EPITHELIAL CELL,UR FEW /LPF (FEW)
[2025-05-06] MEDS ORDERED: TRAN650T5 PO (10:18)
[2025-05-06] MEDS ORDERED: IBUP600T52 PO (10:18)
[2025-05-06 10:21] VITALS: BP 118/67; PULSE 68; RESP 18; TEMP 97.2; O2SAT 99
== END 2025-05-06 10:37 | disposition home or self-care (01) ==
LOC: ER 06:25
DX: F31.9 Bipolar disorder, unspecified (principal); N92.0 Excessive and frequent menstruation with regular cycle; G89.29 Other chronic pain; I25.2 Old myocardial infarction; F41.9 Anxiety disorder, unspecified; F12.90 Cannabis use, unspecified, uncomplicated; F15.90 Other stimulant use, unspecified, uncomplicated; Z72.89 Other problems related to lifestyle; Z56.0 Unemployment, unspecified; Z59.00 Homelessness unspecified; Z88.5 Allergy status to narcotic agent; Z86.14 Personal history of Methicillin resistant Staphylococcus aureus infection; Z90.49 Acquired absence of other specified parts of digestive tract; Z88.1 Allergy status to other antibiotic agents; Z90.721 Acquired absence of ovaries, unilateral; Z98.51 Tubal ligation status; Z79.899 Other long term (current) drug therapy
CPT/HCPCS: 36415; 76856; 80048; 81001; 83690; 84702; 85025; 85610; 87088; 93976; 99284